=== PATIENT | female | born 1950 | race American Indian/Alaskan Native ===

== ENCOUNTER 2021-07-14 09:55 | Inpatient (IN) | payer MEDICARE ==
[2021-07-14] MEDS ORDERED: IPRATROPIUM 0.02% NEBU 2.5 ML IH ONE ×2 (10:00→13:21)
[2021-07-14] MEDS ORDERED: ALBUTEROL 2.5 MG/3 ML NEBU IH ONE (10:00)
[2021-07-14] MEDS ORDERED: SODIUM CHLORIDE 0.9% 1000 ML 1,000 ML IV ONE (10:00)
--- NOTE | 2021-07-14 10:06 | Emergency Department Report ---
ED Shortness of Breath HPI - General Chief Complaint: Dyspnea/Respdistress Stated Complaint: NICKY Time Seen by Provider: 07/14/21 10:00 - History of Present Illness Initial Comments: Patient resents via ambulance secondary shortness of breath. She has a recent diagnosis of COPD. Patient was having trouble breathing. EMS was called. During transport, they noted the patient to be an extremis. They had placed her on a neb. She had received 7.5 mg of albuterol along with 0.5 mg of Atrovent, 125 mg of Solu-Medrol, as well as 2 g of magnesium. According to EMS, she is really not getting any better. She is still wheezing. She is still labored. She is still tachypneic. She is still somnolent. Patient has never been in tubated before as far as we are aware. EMS provides all of the history. History from the patient is somewhat limited due to her respiratory distress. There is no family present. - Related Data Allergies Allergy/AdvReac Type Severity Reaction Status Date / Time No Known Allergies Allergy Verified 07/14/21 12:02 ED Review of Systems ROS: Stated complaint: NICKY Other details as noted in HPI Comment: Unobtainable due to pts medical conditions (Severe respiratory distress) ED Past Medical Hx - Past Medical History Hx COPD: Yes (Per EMS) - Surgical History Additional Surgical History: Cannot be obtained for the patient secondary to respiratory distress - Family History Family history: other (Cannot be obtained for the patient secondary to respiratory distress) - Social History Substance Use Type: Other (Cannot be obtained for the patient secondary to respiratory distress) ED Physical Exam - General Limitations: Physical Limitation (Respiratory distress), Other (Pulse ox is noted and the patient is hypoxic on a nonrebreather) General appearance: obtunded, in distress, other (She is frail) - Head Head exam: Present: atraumatic, normocephalic - Eye Eye exam: Present: normal appearance, EOMI. Absent: scleral icterus - ENT ENT exam: Present: normal external ear exam - Neck Neck exam: Present: normal inspection, other (Trachea midline) - Respiratory Respiratory exam: Present: respiratory distress (Moderate to severe), wheezes (Bilateral), accessory muscle use, decreased breath sounds, prolonged expiratory - Cardiovascular Cardiovascular Exam: Present: normal rhythm, tachycardia - GI/Abdominal GI/Abdominal exam: Present: soft. Absent: distended - Extremities Exam Extremities exam: Present: normal capillary refill. Absent: pedal edema - Neurological Exam Neurological exam: Present: altered, reflexes normal - Psychiatric Psychiatric exam: Present: other (Decreased responsiveness) - Skin Skin exam: Present: warm, dry ED Course Vital Signs 07/14/21 09:57 Temperature 97.6 F Pulse Rate 111 H Respiratory 24 Rate Blood Pressure 149/87 [Left] O2 Sat by Pulse 100 Oximetry - Reevaluation(s) Reevaluation #1: 07/14/21 10:05 EMS was met upon arrival. Continuous neb with BiPAP ordered. X-ray and labs ordered. Patient will need admitted. Old records noted. Reevaluation #2: 07/14/21 12:26 Patient remained hypoxic and dyspneic despite continuous neb. She does have concerning markers for coronavirus although there is no radiographic evidence of such. She will be admitted for ongoing management. ED Medical Decision Making - Lab Data Result diagrams: 07/14/21 10:22 07/14/21 10:22 Rhythm strip: Sinus tachycardia without ectopy. Monitor observe 10 seconds. - Radiology Data Radiology results: report reviewed - Medical Decision Making Patient presented with respiratory distress. She had hypoxic respiratory failure with COPD exacerbation. She had markers that were concerning for c oronavirus but there is no radiographic evidence of coronavirus or other pneumonia. There is no evidence of infiltrative process. She did not have evidence of congestive heart failure. She will be evaluated further. She does have an elevated D-dimer that could be consistent with coronavirus although from an age-adjusted standpoint, this is unremarkable. Critical Care Time: Yes (45 minutes exclusive of all procedures) Critical care attestation.: If time is entered above; I have spent that time in minutes in the direct care of this critically ill patient, excluding procedure time. ED Disposition Clinical Impression: COPD with exacerbation Acute respiratory failure Qualifiers: Respiratory failure complication: hypoxia Qualified Code(s): J96.01 - Acute respiratory failure with hypoxia Disposition: ADMITTED INPATIENT Is pt being admited?: Yes Condition: Stable Instructions: Chronic Obstructive Pulmonary Disease (ED)
--- NOTE | 2021-07-14 11:04 | Electrocardiograph Report ---
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
[2021-07-14 11:07] LABS: BUN/Creatinine Ratio 31; Blood Urea Nitrogen 25 mg/dL (7-17); Calcium 10.8 mg/dL (8.4-10.2); Hemolysis Index 8
[2021-07-14 11:11] LABS: C-Reactive Protein 1.6 mg/dL (0.00-1.30)
[2021-07-14 11:16] LABS: Basophils % (Auto) 0.1 % (0.0-1.8); Hemoglobin 15.4 gm/dl (10.1-14.3); Lymphocytes # (Auto) 0.9 K/mm3 (1.2-5.4); Lymphocytes % (Auto) 7.6 % (13.4-35.0); Mean Corpuscular HGB Conc 33 % (30-34); Mean Corpuscular Volume 86 fl (79-97); Monocytes # (Auto) 0.6 K/mm3 (0.0-0.8); Monocytes % (Auto) 5.1 % (0.0-7.3); Red Blood Count 5.44 M/mm3 (3.65-5.03); Red Cell Distribution Width 15.2 % (13.2-15.2)
--- NOTE | 2021-07-14 11:38 | XRay Report ---
CHEST 1 VIEW 07/14/2021 10:49 AM INDICATION / CLINICAL INFORMATION: hypoxia. COMPARISON: None available. FINDINGS: SUPPORT DEVICES: None. HEART / MEDIASTINUM: No significant abnormality. LUNGS / PLEURA: The lungs are clear and hyperexpanded. No significant pleural effusion. No pneumothor ax. ADDITIONAL FINDINGS: No significant additional findings. IMPRESSION: 1. No acute abnormality of the chest. Signer Name: Scar Strauss MD Signed: 07/14/2021 11:34 AM Workstation Name: [id number]
[2021-07-14 11:45] LABS: Chol/HDL Ratio 3.38 %; HDL Cholesterol 71 mg/dL (40-59); LDL Cholesterol,Direct 146 mg/dL (50-130)
[2021-07-14] MEDS ORDERED: HYDROmorphone 1 MG/1 ML INJ IV PRN (12:13)
[2021-07-14] MEDS ORDERED: ACETAMINOPHEN 325 MG TAB PO PRN (12:13)
[2021-07-14] MEDS ORDERED: oxyCODONE /ACETAMINOPHEN 5-325MG TAB PO PRN (12:13)
[2021-07-14] MEDS ORDERED: ONDANSETRON 4 MG/2 ML INJ IV PRN (12:13)
[2021-07-14] MEDS ORDERED: ALBUTEROL 2.5 MG/3 ML NEBU IH PRN (12:13)
--- NOTE | 2021-07-14 12:13 | History and Physical Report ---
History of Present Illness Chief complaint: She says she could not breathe History of present illness: 71 YO Female with COPD presents ED for evaluation. Patient is confused with dementia And is unable to provide history at the time my evaluation. Patient history taken from EMS staff, ED staff. The patient notified EMS due to difficulty breathing. EMS notified and upon arrival the patient was found to be in distress with a pulse oximetry of 86% on room air. The patient was placed on supplemental oxygen and transported to [facility] for further care and evaluation of the aforementioned symptoms. The patient was seen and evaluated in the emergency department. All lab and imaging studies reviewed. The patient was to have a pulse oximetry of 86% on room air which is consistent with acute hypoxemic respiratory failure. The patient was placed on supplemental oxygen without significant improvement in symptoms. The patient was placed on noninvasive positive pressure ventilation with mild improvement in symptoms. Patient is using accessory muscles to breathe, is unable to speak in complete sentences, tripoding at the time of my evaluation. Chest x-ray showed evidence of pneumonia. Patient admitted to [facility] and initiated on pneumonia protocol as well as coronavirus protocol. Pulmonary team consulted in ED. Infectious disease team consulted in ED. No further history is obtainable. No prior admission for review. No medication listed at time of admission for reconciliation. Advanced care planning conducted in ED. Past History Past Medical History: COPD, other (See HPI) Past Surgical History: No surgical history, Other (Reviewed) Social history: single. denies: smoking, alcohol abuse, prescription drug abuse Family history: hypertension Medications and Allergies Allergies Allergy/AdvReac Type Severity Reaction Status Date / Time No Known Allergies Allergy Verified 07/14/21 12:02 Active Meds: Active Medications Albuterol (Albuterol 2.5 Mg/3 Ml Nebu) 10 mg IH ONCE ONE Stop: 07/14/21 10:01 Sodium Chloride (Nacl 0.9% 1000 Ml) 1,000 mls @ 999 mls/hr IV BOLUS ONE Stop: 07/14/21 11:00 Ipratropium Fay (Ipratropium 0.02% Nebu 2.5 Ml) 1 mg IH ONCE ONE Stop: 07/14/21 10:01 Review of Systems ROS unobtainable: due to mental status Exam - Constitutional Vitals: Temp Pulse Resp BP Pulse Ox 97.6 F 111 H 24 149/87 100 07/14/21 09:57 07/14/21 09:57 07/14/21 09:57 07/14/21 09:57 07/14/21 09:57 General appearance: Present: mild distress, cachectic - EENT Eyes: Present: PERRL ENT: hearing intact, clear oral mucosa - Neck Neck: Present: supple, normal ROM - Respiratory Respiratory effort: labored Respiratory: bilateral: diminished, rhonchi - Cardiovascular Heart Sounds: Present: S1 & S2. Absent: rub, click - Extremities Extremities: pulses symmetrical, No edema Peripheral Pulses: within normal limits - Abdominal General gastrointestinal: Present: soft, non-tender, non-distended, normal bowel sounds Female genitourinary: Present: normal - Integumentary Integumentary: Present: clear, warm, dry - Musculoskeletal Musculoskeletal: gait normal, strength equal bilaterally - Psychiatric Psychiatric: no appropriate mood/affect, no intact judgment & insight, no memory intact - Neurologic Neurologic: CNII-XII intact, no focal deficits, moves all extremities, no gait normal HEART Score - HEART Score Troponin: Troponin T 0.032 ng/mL (0.00-0.029) H 07/14/21 10:22 Results - Labs CBC & Chem 7: 07/14/21 10:22 07/14/21 10:22 Labs: Abnormal lab results 07/14/21 07/14/21 07/14/21 Range/Units 10:22 10:22 10:22 WBC 11.4 H (4.5-11.0) K/mm3 RBC 5.44 H (3.65-5.03) M/mm3 Hgb 15.4 H (10.1-14.3) gm/dl Hct 47.0 H (30.3-42.9) % Lymph % (Auto) 7.6 L (13.4-35.0) % Lymph # (Auto) 0.9 L (1.2-5.4) K/mm3 Seg Neutrophils % 87.2 H (40.0-70.0) % Seg Neutrophils # 9.9 H (1.8-7.7) K/mm3 D-Dimer 642.08 H (0-234) ng/mlDDU Chloride 97.2 L (98-107) mmol/L BUN 25 H (7-17) mg/dL Glucose 143 H (65-100) mg/dL Calcium 10.8 H (8.4-10.2) mg/dL Ferritin (10.0-200.0) ng/mL Lactate Dehydrogenase (91-180) units/L Troponin T 0.032 H (0.00-0.029) ng/mL C-Reactive Protein (0.00-1.30) mg/dL Triglycerides 162 H (2-149) mg/dL Cholesterol 240 H (50-199) mg/dL LDL Cholesterol Direct 146 H (50-130) mg/dL HDL Cholesterol 71 H (40-59) mg/dL 07/14/21 07/14/21 Range/Units 10:22 10:22 WBC (4.5-11.0) K/mm3 RBC (3.65-5.03) M/mm3 Hgb (10.1-14.3) gm/dl Hct (30.3-42.9) % Lymph % (Auto) (13.4-35.0) % Lymph # (Auto) (1.2-5.4) K/mm3 Seg Neutrophils % (40.0-70.0) % Seg Neutrophils # (1.8-7.7) K/mm3 D-Dimer (0-234) ng/mlDDU Chloride (98-107) mmol/L BUN (7-17) mg/dL Glucose 144 H (65-100) mg/dL Calcium (8.4-10.2) mg/dL Ferritin 263.2 H (10.0-200.0) ng/mL Lactate Dehydrogenase 314 H (91-180) units/L Troponin T (0.00-0.029) ng/mL C-Reactive Protein 1.60 H (0.00-1.30) mg/dL Triglycerides (2-149) mg/dL Cholesterol (50-199) mg/dL LDL Cholesterol Direct (50-130) mg/dL HDL Cholesterol (40-59) mg/dL Assessment and Plan - Patient Problems (1) Acute hypoxemic respiratory failure Current Visit: Yes Status: Acute Plan to address problem: Chest x-ray, supplemental oxygen, pulse oximetry. Noninvasive positive pressure ventilation. Pulmonary team consulted, (2) Malnutrition Current Visit: Yes Status: Acute Qualifiers: Malnutrition type: protein-calorie malnutrition Protein-calorie malnutrition severity: moderate Qualified Code(s): E44.0 - Moderate protein- calorie malnutrition Plan to address problem: Increase protein intake when awake and alert only, dietary supplementation (3) Suspected 2019 novel coronavirus infection Current Visit: Yes Status: Acute Plan to address problem: Coronavirus protocol: IV antibiotic therapy, IV steroid therapy, supplemental oxygen, pulse oximetry, vitamin D therapy, vitamin C therapy, zinc therapy, prophylactic anticoagulation. (4) Pneumonia Current Visit: Yes Status: Acute Plan to address problem: Pneumonia protocol: Chest x-ray, CBC, supplemental oxygen, pulse oximetry, nebulizer therapy, blood culture. (5) COVID-19 vaccination not done Current Visit: Yes Status: Acute Plan to address problem: Patient counseled, (6) DVT prophylaxis Current Visit: Yes Status: Acute Plan to address problem: SCD to bilateral lower extremities while in bed, prophylactic anticoagulation (7) Advance care planning Current Visit: Yes Status: Acute Plan to address problem: Disease education done, care plan discussed, diagnosis discussed, prognosis discussed, patient is full code, +30 minutes.
[2021-07-14] MEDS ORDERED: AZITHROMYCIN/NS 500 MG/250 ML 500 MG/250 ML BAG IV SCH (13:00)
[2021-07-14] MEDS: methylPREDNISolone Sod Succinate 40 MG/1 ML INJ IV SCH ×2 (14:15→22:34)
[2021-07-14] MEDS: cefTRIAXone/NS 2 GM/100 ML 2 GM/100 ML BAG IV SCH (14:45)
[2021-07-14] MEDS ORDERED: SODIUM CHLORIDE 0.9% 1000 ML 1,000 ML ONE (15:03)
[2021-07-14 17:28] LABS: Platelet Count 142 K/mm3 (140-440)
[2021-07-14] MEDS: ZINC SULFATE 220 MG CAP PO SCH (22:33)
[2021-07-14] MEDS: ASCORBIC ACID 500 MG TAB PO SCH (22:33)
[2021-07-14] MEDS: HEPARIN 5,000 UNIT/1 ML VIAL SUB-Q SCH (22:34)
[2021-07-15 04:24] LABS: Basophils % (Auto) 0.1 % (0.0-1.8); Hematocrit 40.4 % (30.3-42.9); Hemoglobin 13.2 gm/dl (10.1-14.3); Lymphocytes # (Auto) 0.9 K/mm3 (1.2-5.4); Lymphocytes % (Auto) 9.9 % (13.4-35.0); Mean Corpuscular HGB Conc 33 % (30-34); Mean Corpuscular Volume 87 fl (79-97); Monocytes # (Auto) 0.8 K/mm3 (0.0-0.8); Monocytes % (Auto) 9.3 % (0.0-7.3); Red Blood Count 4.62 M/mm3 (3.65-5.03)
[2021-07-15 04:31] LABS: Platelet Count 128 K/mm3 (140-440)
[2021-07-15] MEDS ORDERED: ACETAMINOPHEN 325 MG TAB PO PRN (07:41)
[2021-07-15] MEDS: CHOLECALCIFEROL (VIT D3) 400 UNIT TAB PO SCH (10:24)
[2021-07-15] MEDS: ASCORBIC ACID 500 MG TAB PO SCH ×2 (10:24→22:40)
[2021-07-15] MEDS: AZITHROMYCIN 250 MG TAB PO SCH (10:24)
[2021-07-15] MEDS: ZINC SULFATE 220 MG CAP PO SCH ×2 (10:25→22:40)
[2021-07-15] MEDS: HEPARIN 5,000 UNIT/1 ML VIAL SUB-Q SCH ×2 (10:25→22:40)
[2021-07-15] MEDS: methylPREDNISolone Sod Succinate 40 MG/1 ML INJ IV SCH ×3 (10:25→22:41)
--- NOTE | 2021-07-15 11:11 | Electrocardiograph Report ---
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 Electronically Signed On 07-15-2021 11:11:21 EST by Guanakito Haynes
[2021-07-15] MEDS: cefTRIAXone/NS 2 GM/100 ML 2 GM/100 ML BAG IV SCH (14:31)
--- NOTE | 2021-07-15 16:56 | Progress Note ---
Assessment and Plan Assessment and plan: -- Positive COVID-19 infection [07/14/2019] Current Visit: Yes Status: Acute Isolation contact and droplet isolation Oxygen evaluation, currently not on supplemental oxygen push respiratory therapist Prone positioning, inflammatory markers ID consult, home O2 evaluation at discharge pulse oximetry, vitamin D therapy, vitamin C therapy, zinc therapy, ID consult --Malnutrition Current Visit: Yes Status: Acute Dietary supplements and supportive care -- Pneumonia Current Visit: Yes Status: Acute Leukocytosis, procalcitonin is high Continue empiric antibiotics, follow cultures Oxygen as needed --Elevated D-dimers; Current Visit: Yes Status: Acute Check CTA to rule out PE Lower extremity venous Doppler to rule out DVT -- COVID-19 vaccination not done Current Visit: Yes Status: Acute Patient counseled, -- DVT prophylaxis Current Visit: Yes Status: Acute SCD to bilateral lower extremities while in bed, prophylactic anticoagulation --Advance care planning Current Visit: Yes Status: Acute Disease education done, care plan discussed, diagnosis discussed, prognosis discussed, patient is full code, +30 minutes. We will closely monitor the patient and adjust management as needed plan of care reviewed with the patient and her nurse History Interval history: Seen and examined the patient at the bedside Patient's chart and medications reviewed, isolation precautions and PPE protocols observed Patient seen in isolation, COVID-19 positive Complains of mild shortness of breath Hospitalist Physical - Constitutional Vitals: Temp Pulse Resp BP Pulse Ox 98.0 F 85 20 118/74 96 07/15/21 12:29 07/15/21 12:29 07/15/21 12:32 07/15/21 12:29 07/15/21 13:15 General appearance: Present: mild distress, cachectic - EENT Eyes: Present: PERRL, EOM intact - Neck Neck: Present: supple, normal ROM - Respiratory Respiratory effort: normal Respiratory: left: rhonchi, wheezing, other, bilateral: diminished, negative: rales - Cardiovascular Rhythm: regularly irregular Heart Sounds: Present: S1 & S2, gallop, rub, click - Extremities Extremities: no ischemia, No edema - Abdominal General gastrointestinal: soft, non-tender, non-distended, normal bowel sounds - Integumentary Integumentary: Present: clear, warm - Psychiatric Psychiatric: appropriate mood/affect, cooperative - Neurologic Neurologic: moves all extremities HEART Score - HEART Score Troponin: Troponin T 0.032 ng/mL (0.00-0.029) H 07/14/21 10:22 Results - Labs CBC & Chem 7: 07/15/21 03:55 07/14/21 10:22 Labs: Laboratory Last Values WBC 8.8 K/mm3 (4.5-11.0) 07/15/21 03:55 RBC 4.62 M/mm3 (3.65-5.03) 07/15/21 03:55 Hgb 13.2 gm/dl (10.1-14.3) 07/15/21 03:55 Hct 40.4 % (30.3-42.9) D 07/15/21 03:55 MCV 87 fl (79-97) 07/15/21 03:55 MCH 29 pg (28-32) 07/15/21 03:55 MCHC 33 % (30-34) 07/15/21 03:55 RDW 15.0 % (13.2-15.2) 07/15/21 03:55 Plt Count 128 K/mm3 (140-440) L 07/15/21 03:55 Lymph % (Auto) 9.9 % (13.4-35.0) L 07/15/21 03:55 [place] % (Auto) 9.3 % (0.0-7.3) H 07/15/21 03:55 Eos % (Auto) 0.0 % (0.0-4.3) 07/15/21 03:55 Baso % (Auto) 0.1 % (0.0-1.8) 07/15/21 03:55 Lymph # (Auto) 0.9 K/mm3 (1.2-5.4) L 07/15/21 03:55 [place] # (Auto) 0.8 K/mm3 (0.0-0.8) 07/15/21 03:55 Eos # (Auto) 0.0 K/mm3 (0.0-0.4) 07/15/21 03:55 Baso # (Auto) 0.0 K/mm3 (0.0-0.1) 07/15/21 03:55 Seg Neutrophils % 80.7 % (40.0-70.0) H 07/15/21 03:55 Seg Neutrophils # 7.1 K/mm3 (1.8-7.7) 07/15/21 03:55 D-Dimer 642.08 ng/mlDDU (0-234) H 07/14/21 10:22 Sodium 137 mmol/L (137-145) 07/14/21 10:22 Potassium 3.9 mmol/L (3.6-5.0) 07/14/21 10:22 Chloride 97.2 mmol/L (98-107) L 07/14/21 10:22 Carbon Dioxide 22 mmol/L (22-30) 07/14/21 10:22 Anion Gap 22 mmol/L 07/14/21 10:22 BUN 25 mg/dL (7-17) H 07/14/21 10:22 Creatinine 0.8 mg/dL (0.6-1.2) 07/14/21 10:22 Estimated GFR > 60 ml/min 07/14/21 10:22 BUN/Creatinine Ratio 31 % 07/14/21 10:22 Glucose 143 mg/dL (65-100) H 07/14/21 10:22 Glucose 144 mg/dL (65-100) H 07/14/21 10:22 Calcium 10.8 mg/dL (8.4-10.2) H 07/14/21 10:22 Ferritin 263.2 ng/mL (10.0-200.0) H 07/14/21 10:22 Lactate Dehydrogenase 314 units/L (91-180) H 07/14/21 10:22 Troponin T 0.032 ng/mL (0.00-0.029) H 07/14/21 10:22 C-Reactive Protein 1.60 mg/dL (0.00-1.30) H 07/14/21 10:22 Triglycerides 162 mg/dL (2-149) H 07/14/21 10:22 Cholesterol 240 mg/dL (50-199) H 07/14/21 10:22 LDL Cholesterol Direct 146 mg/dL (50-130) H 07/14/21 10:22 HDL Cholesterol 71 mg/dL (40-59) H 07/14/21 10:22 Cholesterol/HDL Ratio 3.38 % 07/14/21 10:22 Procalcitonin 1.35 ng/mL (<0.15) 07/14/21 10:22 Coronavirus (PCR) Positive (Negative) A 07/14/21 10:58 Active Medications - Current Medications Current Medications: Generic Name Dose Route Start Last Admin Trade Name Freq PRN Reason Stop Dose Admin Acetaminophen 650 mg 07/15/21 07:41 Acetaminophen 325 Mg Tab PO Q4H PRN Pain MILD(1-3)/Fever >100.5/CANNON Albuterol 2.5 mg 07/14/21 12:13 Albuterol 2.5 Mg/3 Ml Nebu IH Q4HRT PRN Shortness Of Breath Ascorbic Acid 500 mg 07/14/21 22:00 07/15/21 10:24 Ascorbic Acid 500 Mg Tab PO 500 mg BID CECI Administration Azithromycin 500 mg 07/15/21 10:00 07/15/21 10:24 Azithromycin 250 Mg Tab PO 07/18/21 10:01 500 mg DAILY CECI Administration Cholecalciferol 1,000 unit 07/15/21 10:00 07/15/21 10:24 Cholecalciferol (Vit D3) 400 Unit Tab PO 1,000 unit QDAY CECI Administration Heparin Sodium (Porcine) 5,000 unit 07/14/21 22:00 07/15/21 10:25 Heparin 5,000 Unit/1 Ml Vial SUB-Q 5,000 unit Q12HR CECI Administration Hydromorphone HCl 0.5 mg 07/14/21 12:13 07/14/21 14:45 Hydromorphone 1 Mg/1 Ml Inj IV 0.5 mg Q23H PRN Administration Pain , Severe (7-10) Ceftriaxone Sodium 2 gm in 100 mls @ 200 mls/hr 07/14/21 13:00 07/15/21 14:31 Rocephin/Ns 2 Gm/100 Ml IV 07/18/21 13:29 200 mls/hr Q24H CECI Administration Protocol Methylprednisolone Sodium Succinate 40 mg 07/14/21 14:00 07/15/21 14:31 Methylprednisolone Sod Succinate 40 Mg/1 Ml Inj IV 40 mg Q8HR CECI Administration Ondansetron HCl 4 mg 07/14/21 12:13 Ondansetron 4 Mg/2 Ml Inj IV Q8H PRN Nausea And Vomiting Oxycodone/Acetaminophen 1 tab 07/14/21 12:13 Oxycodone /Acetaminophen 5-325mg Tab PO Q16H PRN Pain, Moderate (4-6) Sodium Chloride 10 ml 07/14/21 22:00 07/15/21 10:25 Sodium Chloride 0.9% 10 Ml Flush Syringe IV 10 ml BID CECI Administration Sodium Chloride 10 ml 07/14/21 12:13 Sodium Chloride 0.9% 10 Ml Flush Syringe IV PRN PRN LINE FLUSH Zinc Sulfate 220 mg 07/14/21 22:00 07/15/21 10:25 Zinc Sulfate 220 Mg Cap PO 220 mg BID CECI Administration
[2021-07-16] MEDS: methylPREDNISolone Sod Succinate 40 MG/1 ML INJ IV SCH ×3 (07:30→23:16)
[2021-07-16 09:10] LABS: Alanine Aminotransferase 11 units/L (7-56); Albumin 3.9 g/dL (3.9-5); Blood Urea Nitrogen 24 mg/dL (7-17); Calcium 10.6 mg/dL (8.4-10.2); Hemolysis Index 3
[2021-07-16 09:19] LABS: BUN/Creatinine Ratio 34
--- NOTE | 2021-07-16 09:19 | Progress Note ---
Assessment and Plan Assessment and plan: --Acute hypoxia; 3 L NC oxygen Current Visit: Yes Status: Acute patient is on 3 L of supplemental oxygen this morning Patient was on room air yesterday Continue O2 titrate O2 sats to more than 90%, Will add remdesivir, patient is already on steroid Home O2 evaluation prior to discharge Prone positioning -- Positive COVID-19 infection [07/14/2019] Current Visit: Yes Status: Acute Isolation contact and droplet isolation Oxygen evaluation, today patient is on 3 L NC O2 We will add remdesivir to the regimen Prone positioning, inflammatory markers ID consult, home O2 evaluation at discharge pulse oximetry, vitamin D therapy, vitamin C therapy, zinc therapy, --Malnutrition/BMI 18 Current Visit: Yes Status: Acute Dietary supplements and supportive care Albumin within normal range -- Pneumonia Current Visit: Yes Status: Acute Leukocytosis, procalcitonin is high Continue empiric antibiotics, follow cultures Oxygen 3 L NC today --Elevated D-dimers; hypoxia Current Visit: Yes Status: Acute Check CTA to rule out PE Lower extremity venous Doppler to rule out DVT -- COVID-19 vaccination not done Current Visit: Yes Status: Acute Patient counseled, -- DVT prophylaxis Current Visit: Yes Status: Acute SCD to bilateral lower extremities while in bed, prophylactic anticoagulation --Advance care planning Current Visit: Yes Status: Acute Disease education done, care plan discussed, diagnosis discussed, prognosis discussed, patient is full code, +30 minutes. We will closely monitor the patient and adjust management as needed plan of care reviewed with the patient and her nurse History Interval history: I have seen and examined the patient at the bedside this morning Isolation precautions and PPE protocols strictly followed per COVID-19 CDC guidelines Patient complains of generalized weakness Patient is hypoxic requiring 3 L of nasal cannula oxygen Hospitalist Physical - Constitutional Vitals: Temp Pulse Resp BP Pulse Ox 97.9 F 78 20 120/71 98 07/16/21 05:18 07/16/21 05:18 07/16/21 05:18 07/16/21 05:18 07/16/21 05:18 General appearance: Present: mild distress, cachectic, other (On 3 L nasal cannula oxygen) - EENT Eyes: Present: PERRL, EOM intact - Neck Neck: Present: supple, normal ROM - Respiratory Respiratory effort: normal Respiratory: bilateral: diminished, rhonchi, negative: rales, wheezing - Cardiovascular Rhythm: regular Heart Sounds: Present: S1 & S2 - Extremities Extremities: no ischemia, No edema - Abdominal General gastrointestinal: soft, non-tender, non-distended, normal bowel sounds - Integumentary Integumentary: Present: clear, warm - Psychiatric Psychiatric: appropriate mood/affect, cooperative - Neurologic Neurologic: CNII-XII intact, moves all extremities HEART Score - HEART Score Troponin: Troponin T 0.032 ng/mL (0.00-0.029) H 07/14/21 10:22 Results - Labs CBC & Chem 7: 07/15/21 03:55 07/16/21 14:51 Labs: Laboratory Last Values WBC 8.8 K/mm3 (4.5-11.0) 07/15/21 03:55 RBC 4.62 M/mm3 (3.65-5.03) 07/15/21 03:55 Hgb 13.2 gm/dl (10.1-14.3) 07/15/21 03:55 Hct 40.4 % (30.3-42.9) D 07/15/21 03:55 MCV 87 fl (79-97) 07/15/21 03:55 MCH 29 pg (28-32) 07/15/21 03:55 MCHC 33 % (30-34) 07/15/21 03:55 RDW 15.0 % (13.2-15.2) 07/15/21 03:55 Plt Count 128 K/mm3 (140-440) L 07/15/21 03:55 Lymph % (Auto) 9.9 % (13.4-35.0) L 07/15/21 03:55 Brooks % (Auto) 9.3 % (0.0-7.3) H 07/15/21 03:55 Eos % (Auto) 0.0 % (0.0-4.3) 07/15/21 03:55 Baso % (Auto) 0.1 % (0.0-1.8) 07/15/21 03:55 Lymph # (Auto) 0.9 K/mm3 (1.2-5.4) L 07/15/21 03:55 Brooks # (Auto) 0.8 K/mm3 (0.0-0.8) 07/15/21 03:55 Eos # (Auto) 0.0 K/mm3 (0.0-0.4) 07/15/21 03:55 Baso # (Auto) 0.0 K/mm3 (0.0-0.1) 07/15/21 03:55 Seg Neutrophils % 80.7 % (40.0-70.0) H 07/15/21 03:55 Seg Neutrophils # 7.1 K/mm3 (1.8-7.7) 07/15/21 03:55 D-Dimer 642.08 ng/mlDDU (0-234) H 07/14/21 10:22 Sodium 142 mmol/L (137-145) 07/16/21 08:17 Potassium 4.4 mmol/L (3.6-5.0) 07/16/21 08:17 Chloride 106.7 mmol/L (98-107) 07/16/21 08:17 Carbon Dioxide 23 mmol/L (22-30) 07/16/21 08:17 Anion Gap 17 mmol/L 07/16/21 08:17 BUN 24 mg/dL (7-17) H 07/16/21 08:17 Creatinine 0.8 mg/dL (0.6-1.2) 07/14/21 10:22 Estimated GFR > 60 ml/min 07/14/21 10:22 BUN/Creatinine Ratio 31 % 07/14/21 10:22 Glucose 114 mg/dL (65-100) H 07/16/21 08:17 POC Glucose 107 mg/dL (70-105) H 07/16/21 07:28 Calcium 10.6 mg/dL (8.4-10.2) H 07/16/21 08:17 Ferritin 263.2 ng/mL (10.0-200.0) H 07/14/21 10:22 Total Bilirubin < 0.20 mg/dL (0.1-1.2) 07/16/21 08:17 AST 21 units/L (5-40) 07/16/21 08:17 ALT 11 units/L (7-56) 07/16/21 08:17 Alkaline Phosphatase 69 units/L (35-129) 07/16/21 08:17 Lactate Dehydrogenase 314 units/L (91-180) H 07/14/21 10:22 Troponin T 0.032 ng/mL (0.00-0.029) H 07/14/21 10:22 C-Reactive Protein 1.60 mg/dL (0.00-1.30) H 07/14/21 10:22 Total Protein 7.1 g/dL (6.3-8.2) 07/16/21 08:17 Albumin 3.9 g/dL (3.9-5) 07/16/21 08:17 Albumin/Globulin Ratio 1.2 % 07/16/21 08:17 Triglycerides 162 mg/dL (2-149) H 07/14/21 10:22 Cholesterol 240 mg/dL (50-199) H 07/14/21 10:22 LDL Cholesterol Direct 146 mg/dL (50-130) H 07/14/21 10:22 HDL Cholesterol 71 mg/dL (40-59) H 07/14/21 10: Cholesterol/HDL Ratio 3.38 % 07/14/21 10:22 Procalcitonin 1.35 ng/mL (<0.15) 07/14/21 10:22 Coronavirus (PCR) Positive (Negative) A 07/14/21 10:58 Schwarz/IV: Voiding Method Bedpan Active Medications - Current Medications Current Medications: Generic Name Dose Route Start Last Admin Trade Name Freq PRN Reason Stop Dose Admin Acetaminophen 650 mg 07/15/21 07:41 Acetaminophen 325 Mg Tab PO Q4H PRN Pain MILD(1-3)/Fever >100.5/CANNON Albuterol 2.5 mg 07/14/21 12:13 Albuterol 2.5 Mg/3 Ml Nebu IH Q4HRT PRN Shortness Of Breath Ascorbic Acid 500 mg 07/14/21 22:00 07/15/21 22:40 Ascorbic Acid 500 Mg Tab PO 500 mg BID CECI Administration Azithromycin 500 mg 07/15/21 10:00 07/15/21 10:24 Azithromycin 250 Mg Tab PO 07/18/21 10:01 500 mg DAILY CECI Administration Cholecalciferol 1,000 unit 07/15/21 10:00 07/15/21 10:24 Cholecalciferol (Vit D3) 400 Unit Tab PO 1,000 unit QDAY CECI Administration Heparin Sodium (Porcine) 5,000 unit 07/14/21 22:00 07/15/21 22:40 Heparin 5,000 Unit/1 Ml Vial SUB-Q 5,000 unit Q12HR CECI Administration Hydromorphone HCl 0.5 mg 07/14/21 12:13 07/14/21 14:45 Hydromorphone 1 Mg/1 Ml Inj IV 0.5 mg Q23H PRN Administration Pain , Severe (7-10) Ceftriaxone Sodium 2 gm in 100 mls @ 200 mls/hr 07/14/21 13:00 07/15/21 14:31 Rocephin/Ns 2 Gm/100 Ml IV 07/18/21 13:29 200 mls/hr Q24H CECI Administration Protocol Methylprednisolone Sodium Succinate 40 mg 07/14/21 14:00 07/16/21 07:30 Methylprednisolone Sod Succinate 40 Mg/1 Ml Inj IV 40 mg Q8HR CECI Administration Ondansetron HCl 4 mg 07/14/21 12:13 Ondansetron 4 Mg/2 Ml Inj IV Q8H PRN Nausea And Vomiting Oxycodone/Acetaminophen 1 tab 07/14/21 12:13 Oxycodone /Acetaminophen 5-325mg Tab PO Q16H PRN Pain, Moderate (4-6) Sodium Chloride 10 ml 07/14/21 22:00 07/15/21 22:41 Sodium Chloride 0.9% 10 Ml Flush Syringe IV 10 ml BID CECI Administration Sodium Chloride 10 ml 07/14/21 12:13 Sodium Chloride 0.9% 10 Ml Flush Syringe IV PRN PRN LINE FLUSH Zinc Sulfate 220 mg 07/14/21 22:00 07/15/21 22:40 Zinc Sulfate 220 Mg Cap PO 220 mg BID CECI Administration Nutrition/Malnutrition Assess - Dietary Evaluation Nutrition/Malnutrition Findings: Nutrition Notes Start: 07/15/21 17:53 Freq: Status: Active Protocol: Document 07/15/21 17:53 PATRICIA (Rec: 07/15/21 18:10 PATRICIA [email or web address]) Nutrition Notes Need for Assessment generated from: Low BMI Initial or Follow up Assessment Current Diagnosis Respiratory Failure, Malnutrition Other Pertinent Diagnosis COVID-19, Pneumonia, Acute moderate protein/calorie malnutritioon. Current Diet Regular Diet (since D 07/14). Labs/Tests 07/15: Cl 97.2, BUN 25, Glu 143, Ca 10.8. Pertinent Medications 07/15: Vit C, Vit D3, ZnSO4, others nutritionally unremarkable. Height 5 ft 5 in Weight 49.895 kg Weed Body Weight (kg) 56.81 BMI 18.3 Intake Prior to Admission Good Weight change and time frame Pt states maame having loss body weight [employer]. Weight Status Underweight Subjective/Other Information RD consult for Low BMI assessment. Pt's Low BMI seems to correspond to a natural body composition, and not related to a sudden loss of body weight nor chronic malnutrition, since none were mentioned in the Physical Assessment History or the Progress notes. No report available on Pt's PO intake of meals at the time. F/U on dietary intake assessment. Percent of energy/protein needs met: Prescribed Regular Diet provides for energy/protein needs (2,289 Kcal/89 g) during LOS. Burn Absent Trauma Absent GI Symptoms None Food Allergy No Skin Integrity/Comment Clear, warm, dry. Minimum of two criteria No Is patient on ventilator? No Is Patient Ambulatory and/or Out of Bed Yes REE-([facility]-ambulatory/OOB) [ 1332.279 [id number]] Kcal/Kg value to use for calculation 31 Approximate Energy Requirements Using 1547 kcal/Kg Calculation Used for Recommendations Kcal/kg Additional Notes Protein: 1-1.2 g/Kg; 50-60 g/ day. Fluids: 1 ml/Kcal, or as per MD. Nutrition Intervention Follow-Up By: 07/22/21 Additional Comments Continue monitoring food tolerance, %PO intake of meals , and BM.
[2021-07-16] MEDS: HEPARIN 5,000 UNIT/1 ML VIAL SUB-Q SCH ×2 (10:55→23:15)
[2021-07-16] MEDS: ASCORBIC ACID 500 MG TAB PO SCH ×2 (10:55→23:15)
[2021-07-16] MEDS: ZINC SULFATE 220 MG CAP PO SCH ×2 (10:55→23:17)
[2021-07-16] MEDS: AZITHROMYCIN 250 MG TAB PO SCH (10:55)
[2021-07-16] MEDS: CHOLECALCIFEROL (VIT D3) 400 UNIT TAB PO SCH (11:03)
--- NOTE | 2021-07-16 13:18 | Cat Scan Report ---
CT angio chest INDICATION / CLINICAL INFORMATION: Hypoxia/COVID/elevated D-dimers/rule out PE. TECHNIQUE: Axial CT images were obtained through the chest after injection of 70 cc of Omnipaque 350 IV contrast. 3 plane MIP and/or 3D reconstructions were produced. All CT scans at this location are p erformed using CT dose reduction for ALARA by means of automated exposure control. COMPARISON: Same day chest radiograph FINDINGS: PULMONARY ARTERIES: No central or segmental pulmonary embolus. THORACIC AORTA: Calcified atherosclerotic plaque is noted throughout the nonaneurysmal thoracic aorta and major braches, to include the coronary arteries. HEART: No significant abnormality. LYMPHADENOPATHY: Mildly enlarged mediastinal lymph nodes are likely reactive. LUNGS/PLEURA: The lungs are hyperexpanded with emphysema. Prominent areas of bronchial wall thickenin g within the lung bases with scattered areas of mucous plugging. There is no airspace consolidation. No pleural effusion or pneumothorax. OTHER FINDINGS: None. UPPER ABDOMEN: No acute findings. 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 No acute osseous findings. IMPRESSION: 1. No evidence for pulmonary embolism. 2. Prominent areas of bronchial wall thickening in the lung bases with scattered areas of mucous plug ging. Findings most likely reflect lower lower airways disease/bronchiolitis. No evidence of bronchop neumonia. Signer Name: Elliott Winslow MD Signed: 07/16/2021 1:13 PM Workstation Name: [id number]
[2021-07-16] MEDS ORDERED: REMDESIVIR 200 MG in SODIUM CHLORIDE 0.9% 250ML 250 ML IV ONE (13:48)
--- NOTE | 2021-07-16 13:50 | Consultation ---
History of Present Illness - Reason for Consult Consult date: 07/16/21 COVID-19 Requesting physician: NASIMA FRAIRE - History of Present Illness The patient is a 71-year-old female with COPD, dementia was admitted to the hospital with worsening shortness of breath. Upon evaluation in the ER, noted to be hypoxic on room air. Afebrile. WBC was 11.4 on admission, improved to 8.8 today, D-dimer 642, ferritin 263, CRP 1.6, procalcitonin 1.35. Patient test ed positive for COVID-19. Infectious diseases was consulted for additional evaluation. Chest x-ray showed no pneumonia. CTA negative for PE, showed some mucous plugging and possible bronchiolitis. Review of Systems: reviewed in the chart, unable to obtain, minimize risk of transmission Past History Past Medical History: COPD, other (See HPI) Past Surgical History: No surgical history, Other (Reviewed) Social history: single. denies: smoking, alcohol abuse, prescription drug abuse Family history: hypertension Medications and Allergies Allergies Allergy/AdvReac Type Severity Reaction Status Date / Time No Known Allergies Allergy Verified 07/14/21 12:02 Active Meds: Active Medications Acetaminophen (Acetaminophen 325 Mg Tab) 650 mg PO Q4H PRN PRN Reason: Pain MILD(1-3)/Fever >100.5/CANNON Albuterol (Albuterol 2.5 Mg/3 Ml Nebu) 2.5 mg IH Q4HRT PRN PRN Reason: Shortness Of Breath Ascorbic Acid (Ascorbic Acid 500 Mg Tab) 500 mg PO BID [facility] Last Admin: 07/16/21 10:55 Dose: 500 mg Azithromycin (Azithromycin 250 Mg Tab) 500 mg PO DAILY [facility] Stop: 07/18/21 10:01 Last Admin: 07/16/21 10:55 Dose: 500 mg Cholecalciferol (Cholecalciferol (Vit D3) 400 Unit Tab) 1,000 unit PO QDAY [facility] Last Admin: 07/16/21 11:03 Dose: 1,000 unit Heparin Sodium (Porcine) (Heparin 5,000 Unit/1 Ml Vial) 5,000 unit SUB-Q Q12HR [facility] Last Admin: 07/16/21 10:55 Dose: 5,000 unit Hydromorphone HCl (Hydromorphone 1 Mg/1 Ml Inj) 0.5 mg IV Q23H PRN PRN Reason: Pain , Severe (7-10) Last Admin: 07/14/21 14:45 Dose: 0.5 mg Ceftriaxone Sodium (Rocephin/Ns 2 Gm/100 Ml) 2 gm in 100 mls @ 200 mls/hr IV Q24H [facility]; Protocol Stop: 07/18/21 13:29 Last Admin: 07/15/21 14:31 Dose: 200 mls/hr REMDESIVIR 200 mg/ Sodium (Chloride) 250 mls @ 500 mls/hr IV ONCE ONE Stop: 07/16/21 14:17 REMDESIVIR 100 mg/ Sodium (Chloride) 250 mls @ 500 mls/hr IV Q24HR@2100 [facility] Stop: 07/20/21 21:29 Methylprednisolone Sodium Succinate (Methylprednisolone Sod Succinate 40 Mg/1 Ml Inj) 40 mg IV Q8HR [facility] Last Admin: 07/16/21 07:30 Dose: 40 mg Ondansetron HCl (Ondansetron 4 Mg/2 Ml Inj) 4 mg IV Q8H PRN PRN Reason: Nausea And Vomiting Oxycodone/Acetaminophen (Oxycodone /Acetaminophen 5-325mg Tab) 1 tab PO Q16H PRN PRN Reason: Pain, Moderate (4-6) Sodium Chloride (Sodium Chloride 0.9% 10 Ml Flush Syringe) 10 ml IV BID [facility] Last Admin: 07/16/21 10:56 Dose: 10 ml Sodium Chloride (Sodium Chloride 0.9% 10 Ml Flush Syringe) 10 ml IV PRN PRN PRN Reason: LINE FLUSH Sodium Chloride (Sodium Chloride 0.9% 50 Ml Ivpb) 50 ml IV Q24HR@2100 [facility] Stop: 07/20/21 21:01 Zinc Sulfate (Zinc Sulfate 220 Mg Cap) 220 mg PO BID [facility] Last Admin: 07/16/21 10:55 Dose: 220 mg Physical Examination - Physical Exam Narrative exam: Physical Exam (reviewed in chart to minimize risk of transmission) Constitutional: deferred Head, Ears, Nose: deferred Eyes: deferred Neck: deferred Oral: deferred Cardiovascular: deferred Respiratory: deferred GI: deferred Musculoskeletal: deferred Skin: deferred Hem/Lymphatic: deferred Psych: deferred Neurological: deferred - Constitutional Vitals: Vital Signs Temp Pulse Resp BP Pulse Ox 97.8 F 87 18 162/84 100 07/16/21 11:11 07/16/21 11:11 07/16/21 11:11 07/16/21 11:11 07/16/21 11:11 Temperature -Last 24 Hours Temperature 97.8 F Temperature 97.9 F Temperature 97.6 F Temperature 98.2 F Results - Labs CBC & Chem 7: 07/15/21 03:55 07/16/21 08:17 Labs: Abnormal lab results 07/16/21 07/16/21 07/16/21 Range/Units 07:28 08:17 10:51 BUN 24 H (7-17) mg/dL Glucose 114 H (65-100) mg/dL POC Glucose 107 H 135 H (70-105) mg/dL Calcium 10.6 H (8.4-10.2) mg/dL - Imaging and Cardiology Chest x-ray: report reviewed, image reviewed (no pneumonia) Assessment and Plan Cultures: SARS CoV2 PCR: positive A/P: 71-year-old female with COPD, dementia with: #COVID-19, also some bronchiolitis and mucous plugging noted on CT, procalcitonin elevated at 1.35 suggestive of bacterial component. #Acute hypoxic respiratory failure: On nasal cannula. #COPD #Thrombocytopenia Recs: -on solumedrol, continue steroids x 10 days -IV remdesivir x 5 days -Continue empiric ceftriaxone, azithromycin for 5 days -prophylactic anticoagulation based on d-dimer per hospital protocol Anuradha Borges MD, FACP, [facility] O: [phone] F: [phone]
[2021-07-16] MEDS: cefTRIAXone/NS 2 GM/100 ML 2 GM/100 ML BAG IV SCH (14:22)
[2021-07-16 15:39] LABS: Alanine Aminotransferase 11 units/L (7-56); Albumin 3.8 g/dL (3.9-5); BUN/Creatinine Ratio 26; Blood Urea Nitrogen 23 mg/dL (7-17); Calcium 10.9 mg/dL (8.4-10.2); Hemolysis Index 5
[2021-07-16] MEDS ORDERED: SODIUM CHLORIDE 0.9% 50 ML ONE (16:03)
[2021-07-16] MEDS: SODIUM CHLORIDE 0.9% 50 ML IVPB IV SCH (16:07)
--- NOTE | 2021-07-16 19:13 | Progress Note ---
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 no evidence of bronchopneumonia.Pulmonary already consulted follow-up pulmonary evaluation recommendations -Acute hypoxia; 3 L NC oxygen Current Visit: Yes Status: Acute patient is on 3 L of supplemental oxygen this morning Patient was on room air yesterday Continue O2 titrate O2 sats to more than 90%, Will add remdesivir, patient is already on steroid Home O2 evaluation prior to discharge Prone positioning -- Positive COVID-19 infection [07/14/2019] Current Visit: Yes Status: Acute Isolation contact and droplet isolation Oxygen evaluation, today patient is on 3 L NC O2 We will add remdesivir to the regimen Prone positioning, inflammatory markers ID consult, home O2 evaluation at discharge pulse oximetry, vitamin D therapy, vitamin C therapy, zinc therapy, --Malnutrition/BMI 18 Current Visit: Yes Status: Acute Dietary supplements and supportive care Albumin within normal range -- Pneumonia Current Visit: Yes Status: Acute Leukocytosis, procalcitonin is high Continue empiric antibiotics, follow cultures Oxygen 3 L NC today --Elevated D-dimers; hypoxia Current Visit: Yes Status: Acute Check CTA to rule out PE Lower extremity venous Doppler to rule out DVT -- COVID-19 vaccination not done Current Visit: Yes Status: Acute Patient counseled, -- DVT prophylaxis Current Visit: Yes Status: Acute SCD to bilateral lower extremities while in bed, prophylactic anticoagulation --Ongoing tobacco use; Counseling smoking cessation Risks and consequences explained to the patient Spent 15 minutes Advised nicotine patch as needed -Advance care planning Current Visit: Yes Status: Acute Disease education done, care plan discussed, diagnosis discussed, prognosis discussed, patient is full code, +30 minutes. We will closely monitor the patient and adjust management as needed plan of care reviewed with the patient and her nurse 07/17/2021; CTA chest negative for PE, complains of some cough, cough medicine, nicotine patch History Interval history: I have seen and examined the patient at the bedside Patient's chart and medications reviewed No new events reported by the nursing Complains of some shortness of breath and cough Hospitalist Physical - Constitutional Vitals: Temp Pulse Resp BP Pulse Ox 98.0 F 84 18 134/75 100 07/16/21 16:38 07/16/21 16:38 07/16/21 16:38 07/16/21 16:38 07/16/21 16:38 General appearance: Present: mild distress, cachectic, other (On 3 L nasal cannula oxygen) - EENT Eyes: Present: PERRL, EOM intact - Neck Neck: Present: supple, normal ROM - Respiratory Respiratory effort: normal Respiratory: bilateral: diminished, negative: rales, rhonchi, wheezing - Cardiovascular Rhythm: regular Heart Sounds: Present: S1 & S2 - Extremities Extremities: no ischemia, No edema - Abdominal General gastrointestinal: soft, non-tender, non-distended, normal bowel sounds - Integumentary Integumentary: Present: clear, warm - Psychiatric Psychiatric: appropriate mood/affect, cooperative - Neurologic Neurologic: moves all extremities HEART Score - HEART Score Troponin: Troponin T 0.032 ng/mL (0.00-0.029) H 07/14/21 10:22 Results - Labs CBC & Chem 7: 07/15/21 03:55 07/17/21 06:54 Labs: Laboratory Last Values WBC 8.8 K/mm3 (4.5-11.0) 07/15/21 03:55 RBC 4.62 M/mm3 (3.65-5.03) 07/15/21 03:55 Hgb 13.2 gm/dl (10.1-14.3) 07/15/21 03:55 Hct 40.4 % (30.3-42.9) D 07/15/21 03:55 MCV 87 fl (79-97) 07/15/21 03:55 MCH 29 pg (28-32) 07/15/21 03:55 MCHC 33 % (30-34) 07/15/21 03:55 RDW 15.0 % (13.2-15.2) 07/15/21 03:55 Plt Count 128 K/mm3 (140-440) L 07/15/21 03:55 Lymph % (Auto) 9.9 % (13.4-35.0) L 07/15/21 03:55 [place] % (Auto) 9.3 % (0.0-7.3) H 07/15/21 03:55 Eos % (Auto) 0.0 % (0.0-4.3) 07/15/21 03:55 Baso % (Auto) 0.1 % (0.0-1.8) 07/15/21 03:55 Lymph # (Auto) 0.9 K/mm3 (1.2-5.4) L 07/15/21 03:55 [place] # (Auto) 0.8 K/mm3 (0.0-0.8) 07/15/21 03:55 Eos # (Auto) 0.0 K/mm3 (0.0-0.4) 07/15/21 03:55 Baso # (Auto) 0.0 K/mm3 (0.0-0.1) 07/15/21 03:55 Seg Neutrophils % 80.7 % (40.0-70.0) H 07/15/21 03:55 Seg Neutrophils # 7.1 K/mm3 (1.8-7.7) 07/15/21 03:55 D-Dimer 642.08 ng/mlDDU (0-234) H 07/14/21 10:22 Sodium 144 mmol/L (137-145) 07/16/21 14:51 Potassium 4.2 mmol/L (3.6-5.0) 07/16/21 14:51 Chloride 106.7 mmol/L (98-107) 07/16/21 14:51 Carbon Dioxide 23 mmol/L (22-30) 07/16/21 14:51 Anion Gap 19 mmol/L 07/16/21 14:51 BUN 23 mg/dL (7-17) H 07/16/21 14:51 Creatinine 0.9 mg/dL (0.6-1.2) 07/16/21 14:51 Estimated GFR > 60 ml/min 07/16/21 14:51 BUN/Creatinine Ratio 26 % 07/16/21 14:51 Glucose 121 mg/dL (65-100) H 07/16/21 14:51 POC Glucose 135 mg/dL (70-105) H 07/16/21 10:51 Calcium 10.9 mg/dL (8.4-10.2) H 07/16/21 14:51 Ferritin 263.2 ng/mL (10.0-200.0) H 07/14/21 10:22 Total Bilirubin < 0.20 mg/dL (0.1-1.2) 07/16/21 14:51 AST 20 units/L (5-40) 07/16/21 14:51 ALT 11 units/L (7-56) 07/16/21 14:51 Alkaline Phosphatase 70 units/L (35-129) 07/16/21 14:51 Lactate Dehydrogenase 314 units/L (91-180) H 07/14/21 10:22 Troponin T 0.032 ng/mL (0.00-0.029) H 07/14/21 10:22 C-Reactive Protein 1.60 mg/dL (0.00-1.30) H 07/14/21 10:22 Total Protein 7.1 g/dL (6.3-8.2) 07/16/21 14:51 Albumin 3.8 g/dL (3.9-5) L 07/16/21 14:51 Albumin/Globulin Ratio 1.2 % 07/16/21 14:51 Triglycerides 162 mg/dL (2-149) H 07/14/21 10:22 Cholesterol 240 mg/dL (50-199) H 07/14/21 10:22 LDL Cholesterol Direct 146 mg/dL (50-130) H 07/14/21 10:22 HDL Cholesterol 71 mg/dL (40-59) H 07/14/21 10:22 Cholesterol/HDL Ratio 3.38 % 07/14/21 10:22 Procalcitonin 1.35 ng/mL (<0.15) 07/14/21 10:22 Coronavirus (PCR) Positive (Negative) A 07/14/21 10:58 Schwarz/IV: Voiding Method Toilet Active Medications - Current Medications Current Medications: Generic Name Dose Route Start Last Admin Trade Name Freq PRN Reason Stop Dose Admin Acetaminophen 650 mg 07/15/21 07:41 Acetaminophen 325 Mg Tab PO Q4H PRN Pain MILD(1-3)/Fever >100.5/CANNON Albuterol 2.5 mg 07/14/21 12:13 Albuterol 2.5 Mg/3 Ml Nebu IH Q4HRT PRN Shortness Of Breath Ascorbic Acid 500 mg 07/14/21 22:00 07/16/21 10:55 Ascorbic Acid 500 Mg Tab PO 500 mg BID CECI Administration Azithromycin 500 mg 07/15/21 10:00 07/16/21 10:55 Azithromycin 250 Mg Tab PO 07/18/21 10:01 500 mg DAILY CECI Administration Cholecalciferol 1,000 unit 07/15/21 10:00 07/16/21 11:03 Cholecalciferol (Vit D3) 400 Unit Tab PO 1,000 unit QDAY CECI Administration Heparin Sodium (Porcine) 5,000 unit 07/14/21 22:00 07/16/21 10:55 Heparin 5,000 Unit/1 Ml Vial SUB-Q 5,000 unit Q12HR CECI Administration Hydromorphone HCl 0.5 mg 07/14/21 12:13 07/14/21 14:45 Hydromorphone 1 Mg/1 Ml Inj IV 0.5 mg Q23H PRN Administration Pain , Severe (7-10) Ceftriaxone Sodium 2 gm in 100 mls @ 200 mls/hr 07/14/21 13:00 07/16/21 14:22 Rocephin/Ns 2 Gm/100 Ml IV 07/18/21 13:29 200 mls/hr Q24H CECI Administration Protocol REMDESIVIR 100 mg/ Sodium 250 mls @ 500 mls/hr 07/17/21 21:00 Chloride IV 07/20/21 21:29 Q24HR@2100 CECI Methylprednisolone Sodium Succinate 40 mg 07/14/21 14:00 07/16/21 14:22 Methylprednisolone Sod Succinate 40 Mg/1 Ml Inj IV 40 mg Q8HR CECI Administration Ondansetron HCl 4 mg 07/14/21 12:13 Ondansetron 4 Mg/2 Ml Inj IV Q8H PRN Nausea And Vomiting Oxycodone/Acetaminophen 1 tab 07/14/21 12:13 Oxycodone /Acetaminophen 5-325mg Tab PO Q16H PRN Pain, Moderate (4-6) Sodium Chloride 10 ml 07/14/21 22:00 07/16/21 10:56 Sodium Chloride 0.9% 10 Ml Flush Syringe IV 10 ml BID CECI Administration Sodium Chloride 10 ml 07/14/21 12:13 Sodium Chloride 0.9% 10 Ml Flush Syringe IV PRN PRN LINE FLUSH Sodium Chloride 50 ml 07/16/21 21:00 07/16/21 16:07 Sodium Chloride 0.9% 50 Ml Ivpb IV 07/20/21 21:01 50 ml Q24HR@2100 CECI Administration Zinc Sulfate 220 mg 07/14/21 22:00 07/16/21 10:55 Zinc Sulfate 220 Mg Cap PO 220 mg BID CECI Administration Nutrition/Malnutrition Assess - Dietary Evaluation Nutrition/Malnutrition Findings: Nutrition Notes Start: 07/15/21 17:53 Freq: Status: Active Protocol: Document 07/15/21 17:53 PATRICIA (Rec: 07/15/21 18:10 PATRICIA [id number]) Nutrition Notes Need for Assessment generated from: Low BMI Initial or Follow up Assessment Current Diagnosis Respiratory Failure, Malnutrition Other Pertinent Diagnosis COVID-19, Pneumonia, Acute moderate protein/calorie malnutritioon. Current Diet Regular Diet (since D 07/14). Labs/Tests 07/15: Cl 97.2, BUN 25, Glu 143, Ca 10.8. Pertinent Medications 07/15: Vit C, Vit D3, ZnSO4, others nutritionally unremarkable. 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 Pt's Low BMI seems to correspond to a natural body composition, and not related to a sudden loss of body weight nor chronic malnutrition, since none were mentioned in the Physical Assessment History or the Progress notes. No report available on Pt's PO intake of meals at the time. F/U on dietary intake assessment. Percent of energy/protein needs met: Prescribed Regular Diet provides for energy/protein needs (2,289 Kcal/89 g) during LOS. Burn Absent Trauma Absent GI Symptoms None Food Allergy No Skin Integrity/Comment Clear, warm, dry. Minimum of two criteria No Is patient on ventilator? No Is Patient Ambulatory and/or Out of Bed Yes REE-([facility]-ambulatory/OOB) [ 1332.279 NUTR.MSJOOB] Kcal/Kg value to use for calculation 31 Approximate Energy Requirements Using 1547 kcal/Kg Calculation Used for Recommendations Kcal/kg Additional Notes Protein: 1-1.2 g/Kg; 50-60 g/ day. Fluids: 1 ml/Kcal, or as per MD. Nutrition Intervention Follow-Up By: 07/22/21 Additional Comments Continue monitoring food tolerance, %PO intake of meals , and BM.
[2021-07-17] MEDS: methylPREDNISolone Sod Succinate 40 MG/1 ML INJ IV SCH ×3 (05:41→23:00)
[2021-07-17 08:47] LABS: Alanine Aminotransferase 9 units/L (7-56); Albumin 3.9 g/dL (3.9-5); BUN/Creatinine Ratio 32; Blood Urea Nitrogen 19 mg/dL (7-17); Hemolysis Index 4
[2021-07-17] MEDS: SODIUM CHLORIDE 0.9% 50 ML IVPB IV SCH ×2 (10:32→23:00)
[2021-07-17] MEDS: ZINC SULFATE 220 MG CAP PO SCH ×2 (10:33→23:00)
[2021-07-17] MEDS: ASCORBIC ACID 500 MG TAB PO SCH ×2 (10:33→23:00)
[2021-07-17] MEDS: CHOLECALCIFEROL (VIT D3) 400 UNIT TAB PO SCH (10:34)
[2021-07-17] MEDS: AZITHROMYCIN 250 MG TAB PO SCH (10:34)
[2021-07-17] MEDS: HEPARIN 5,000 UNIT/1 ML VIAL SUB-Q SCH ×2 (10:34→23:00)
[2021-07-17] MEDS: cefTRIAXone/NS 2 GM/100 ML 2 GM/100 ML BAG IV SCH (14:16)
[2021-07-17] MEDS: NICOTINE 14 MG/24 HR PATCH TD SCH (15:31)
[2021-07-17] MEDS: guaiFENesin DM 200/20 MG ORAL LIQD 10 ML PO PRN (15:31)
[2021-07-17] MEDS: REMDESIVIR 100 MG in SODIUM CHLORIDE 0.9% 250ML 250 ML IV SCH (23:00)
[2021-07-18] MEDS: methylPREDNISolone Sod Succinate 40 MG/1 ML INJ IV SCH ×3 (06:27→22:28)
--- NOTE | 2021-07-18 08:59 | Progress Note ---
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 no evidence of bronchopneumonia.Pulmonary already consulted fol low-up pulmonary evaluation recommendations -Acute hypoxia; 3 L NC oxygen Current Visit: Yes Status: Acute patient is on 3 L of supplemental oxygen this morning Patient was on room air yesterday Continue O2 titrate O2 sats to more than 90%, Will add remdesivir, patient is already on steroid Home O2 evaluation prior to discharge Prone positioning -- Positive COVID-19 infection [07/14/2019] Current Visit: Yes Status: Acute Isolation contact and droplet isolation Oxygen evaluation, today patient is on 3 L NC O2 We will add remdesivir to the regimen Prone positioning, inflammatory markers ID consult, home O2 evaluation at discharge pulse oximetry, vitamin D therapy, vitamin C therapy, zinc therapy, --Malnutrition/BMI 18 Current Visit: Yes Status: Acute Dietary supplements and supportive care Albumin within normal range -- Pneumonia Current Visit: Yes Status: Acute Leukocytosis, procalcitonin is high Continue empiric antibiotics, follow cultures Oxygen 3 L NC today --Elevated D-dimers; hypoxia Current Visit: Yes Status: Acute Check CTA to rule out PE Lower extremity venous Doppler to rule out DVT -- COVID-19 vaccination not done Current Visit: Yes Status: Acute Patient counseled, -- DVT prophylaxis Current Visit: Yes Status: Acute SCD to bilateral lower extremities while in bed, prophylactic anticoagulation --Ongoing tobacco use; Counseling smoking cessation Risks and consequences explained to the patient Spent 15 minutes Advised nicotine patch as needed --Moderate to severe malnutrition; Nutrition supplements, nutrition consult And supportive care -Advance care planning Current Visit: Yes Status: Acute Disease education done, care plan discussed, diagnosis discussed, prognosis discussed, patient is full code, +30 minutes. We will closely monitor the patient and adjust management as needed plan of care reviewed with the patient and her nurse 07/17/2021; CTA chest negative for PE, complains of some cough, cough medicine, nicotine patch 07/18/2021; CTA chest, possible mucous plugs. Bronchiolitis, pulmonary consulted ID evaluation noted and appreciated History Interval history: I have have seen and examined the patient at the bedside this morning Isolation precautions and PPE protocols observed per CDC guidelines Patient complains of mild shortness of breath Currently on 2 L of nasal cannula oxygen Hospitalist Physical - Constitutional Vitals: Temp Pulse Resp BP Pulse Ox 97.4 F L 71 16 138/79 98 07/18/21 03:26 07/18/21 03:26 07/18/21 03:26 07/18/21 03:26 07/18/21 03:26 General appearance: Present: mild distress, cachectic, other (On 3 L nasal cannula oxygen) - EENT Eyes: Present: PERRL, EOM intact - Respiratory Respiratory effort: normal Respiratory: bilateral: diminished, rhonchi, negative: rales, wheezing - Cardiovascular Rhythm: regular Heart Sounds: Present: S1 & S2 - Extremities Extremities: no ischemia, No edema - Abdominal General gastrointestinal: soft, non-tender, non-distended, normal bowel sounds - Integumentary Integumentary: Present: clear, warm - Psychiatric Psychiatric: appropriate mood/affect, cooperative - Neurologic Neurologic: CNII-XII intact, moves all extremities HEART Score - HEART Score Troponin: Troponin T 0.032 ng/mL (0.00-0.029) H 07/14/21 10:22 Results - Labs CBC & Chem 7: 07/15/21 03:55 07/19/21 04:54 Labs: Laboratory Last Values WBC 8.8 K/mm3 (4.5-11.0) 07/15/21 03:55 RBC 4.62 M/mm3 (3.65-5.03) 07/15/21 03:55 Hgb 13.2 gm/dl (10.1-14.3) 07/15/21 03:55 Hct 40.4 % (30.3-42.9) D 07/15/21 03:55 MCV 87 fl (79-97) 07/15/21 03:55 MCH 29 pg (28-32) 07/15/21 03:55 MCHC 33 % (30-34) 07/15/21 03:55 RDW 15.0 % (13.2-15.2) 07/15/21 03:55 Plt Count 128 K/mm3 (140-440) L 07/15/21 03:55 Lymph % (Auto) 9.9 % (13.4-35.0) L 07/15/21 03:55 [place] % (Auto) 9.3 % (0.0-7.3) H 07/15/21 03:55 Eos % (Auto) 0.0 % (0.0-4.3) 07/15/21 03:55 Baso % (Auto) 0.1 % (0.0-1.8) 07/15/21 03:55 Lymph # (Auto) 0.9 K/mm3 (1.2-5.4) L 07/15/21 03:55 [place] # (Auto) 0.8 K/mm3 (0.0-0.8) 07/15/21 03:55 Eos # (Auto) 0.0 K/mm3 (0.0-0.4) 07/15/21 03:55 Baso # (Auto) 0.0 K/mm3 (0.0-0.1) 07/15/21 03:55 Seg Neutrophils % 80.7 % (40.0-70.0) H 07/15/21 03:55 Seg Neutrophils # 7.1 K/mm3 (1.8-7.7) 07/15/21 03:55 D-Dimer 642.08 ng/mlDDU (0-234) H 07/14/21 10:22 Sodium 142 mmol/L (137-145) 07/17/21 06:54 Potassium 4.3 mmol/L (3.6-5.0) 07/17/21 06:54 Chloride 105.2 mmol/L (98-107) 07/17/21 06:54 Carbon Dioxide 24 mmol/L (22-30) 07/17/21 06:54 Anion Gap 17 mmol/L 07/17/21 06:54 BUN 19 mg/dL (7-17) H 07/17/21 06:54 Creatinine 0.6 mg/dL (0.6-1.2) 07/17/21 06:54 Estimated GFR > 60 ml/min 07/17/21 06:54 BUN/Creatinine Ratio 32 % 07/17/21 06:54 Glucose 114 mg/dL (65-100) H 07/17/21 06:54 POC Glucose 147 mg/dL (70-105) H 07/18/21 07:46 Calcium 11.0 mg/dL (8.4-10.2) H 07/17/21 06:54 Ferritin 263.2 ng/mL (10.0-200.0) H 07/14/21 10:22 Total Bilirubin < 0.20 mg/dL (0.1-1.2) 07/17/21 06:54 AST 16 units/L (5-40) 07/17/21 06:54 ALT 9 units/L (7-56) 07/17/21 06:54 Alkaline Phosphatase 63 units/L (35-129) 07/17/21 06:54 Lactate Dehydrogenase 314 units/L (91-180) H 07/14/21 10:22 Troponin T 0.032 ng/mL (0.00-0.029) H 07/14/21 10:22 C-Reactive Protein 1.60 mg/dL (0.00-1.30) H 07/14/21 10:22 Total Protein 6.8 g/dL (6.3-8.2) 07/17/21 06:54 Albumin 3.9 g/dL (3.9-5) 07/17/21 06:54 Albumin/Globulin Ratio 1.3 % 07/17/21 06:54 Triglycerides 162 mg/dL (2-149) H 07/14/21 10:22 Cholesterol 240 mg/dL (50-199) H 07/14/21 10:22 LDL Cholesterol Direct 146 mg/dL (50-130) H 07/14/21 10:22 HDL Cholesterol 71 mg/dL (40-59) H 07/14/21 10:22 Cholesterol/HDL Ratio 3.38 % 07/14/21 10:22 Procalcitonin 1.35 ng/mL (<0.15) 07/14/21 10:22 Coronavirus (PCR) Positive (Negative) A 07/14/21 10:58 Schwarz/IV: Voiding Method Bedpan Active Medications - Current Medications Current Medications: Generic Name Dose Route Start Last Admin Trade Name Freq PRN Reason Stop Dose Admin Acetaminophen 650 mg 07/15/21 07:41 Acetaminophen 325 Mg Tab PO Q4H PRN Pain MILD(1-3)/Fever >100.5/CANNON Albuterol 2.5 mg 07/14/21 12:13 Albuterol 2.5 Mg/3 Ml Nebu IH Q4HRT PRN Shortness Of Breath Ascorbic Acid 500 mg 07/14/21 22:00 07/17/21 23:00 Ascorbic Acid 500 Mg Tab PO 500 mg BID CECI Administration Azithromycin 500 mg 07/15/21 10:00 07/17/21 10:34 Azithromycin 250 Mg Tab PO 07/18/21 10:01 500 mg DAILY CECI Administration Cholecalciferol 1,000 unit 07/15/21 10:00 07/17/21 10:34 Cholecalciferol (Vit D3) 400 Unit Tab PO 1,000 unit QDAY CECI Administration Guaifenesin 10 ml 07/17/21 15:30 07/17/21 15:31 Guaifenesin Dm 200/20 Mg Oral Liqd 10 Ml PO 10 ml Q4H PRN Administration Cough Heparin Sodium (Porcine) 5,000 unit 07/14/21 22:00 07/17/21 23:00 Heparin 5,000 Unit/1 Ml Vial SUB-Q 5,000 unit Q12HR CECI Administration Hydromorphone HCl 0.5 mg 07/14/21 12:13 07/14/21 14:45 Hydromorphone 1 Mg/1 Ml Inj IV 0.5 mg Q23H PRN Administration Pain , Severe (7-10) Ceftriaxone Sodium 2 gm in 100 mls @ 200 mls/hr 07/14/21 13:00 07/17/21 14:16 Rocephin/Ns 2 Gm/100 Ml IV 07/18/21 13:29 200 mls/hr Q24H CECI Administration Protocol REMDESIVIR 100 mg/ Sodium 250 mls @ 500 mls/hr 07/17/21 21:00 07/17/21 23:00 Chloride IV 07/20/21 21:29 500 mls/hr Q24HR@2100 CECI Administration Methylprednisolone Sodium Succinate 40 mg 07/14/21 14:00 07/18/21 06:27 Methylprednisolone Sod Succinate 40 Mg/1 Ml Inj IV 40 mg Q8HR CECI Administration Nicotine 14 mg 07/17/21 15:00 07/17/21 15:31 Nicotine 14 Mg/24 Hr Patch TD 14 mg QDAY CECI Administration Ondansetron HCl 4 mg 07/14/21 12:13 Ondansetron 4 Mg/2 Ml Inj IV Q8H PRN Nausea And Vomiting Oxycodone/Acetaminophen 1 tab 07/14/21 12:13 Oxycodone /Acetaminophen 5-325mg Tab PO Q16H PRN Pain, Moderate (4-6) Sodium Chloride 10 ml 07/14/21 22:00 07/17/21 23:00 Sodium Chloride 0.9% 10 Ml Flush Syringe IV 10 ml BID CECI Administration Sodium Chloride 10 ml 07/14/21 12:13 Sodium Chloride 0.9% 10 Ml Flush Syringe IV PRN PRN LINE FLUSH Sodium Chloride 50 ml 07/16/21 21:00 07/17/21 23:00 Sodium Chloride 0.9% 50 Ml Ivpb IV 07/20/21 21:01 50 ml Q24HR@2100 CECI Administration Zinc Sulfate 220 mg 07/14/21 22:00 07/17/21 23:00 Zinc Sulfate 220 Mg Cap PO 220 mg BID CECI Administration Nutrition/Malnutrition Assess - Dietary Evaluation Nutrition/Malnutrition Findings: Nutrition Notes Start: 07/15/21 17:53 Freq: Status: Active Protocol: Document 07/15/21 17:53 PATRICIA (Rec: 07/15/21 18:10 PATRICIA [id number]) Nutrition Notes Need for Assessment generated from: Low BMI Initial or Follow up Assessment Current Diagnosis Respiratory Failure, Malnutrition Other Pertinent Diagnosis COVID-19, Pneumonia, Acute moderate protein/calorie malnutritioon. Current Diet Regular Diet (since D 07/14). Labs/Tests 07/15: Cl 97.2, BUN 25, Glu 143, Ca 10.8. Pertinent Medications 07/15: Vit C, Vit D3, ZnSO4, others nutritionally unremarkable. 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 Weight Status Underweight Subjective/Other Information RD consult for Low BMI assessment. Pt's Low BMI seems to correspond to a natural body composition, and not related to a sudden loss of body weight nor chronic malnutrition, since none were mentioned in the Physical Assessment History or the Progress notes. No report available on Pt's PO intake of meals at the time. F/U on dietary intake assessment. Percent of energy/protein needs met: Prescribed Regular Diet provides for energy/protein needs (2,289 Kcal/89 g) during LOS. Burn Absent Trauma Absent GI Symptoms None Food Allergy No Skin Integrity/Comment Clear, warm, dry. Minimum of two criteria No Is patient on ventilator? No Is Patient Ambulatory and/or Out of Bed Yes REE-([place] [facility]-ambulatory/OOB) [ 1332.279 NUTR.MSJOOB] Kcal/Kg value to use for calculation 31 Approximate Energy Requirements Using 1547 kcal/Kg Calculation Used for Recommendations Kcal/kg Additional Notes Protein: 1-1.2 g/Kg; 50-60 g/ day. Fluids: 1 ml/Kcal, or as per MD. Nutrition Intervention Follow-Up By: 07/22/21 Additional Comments Continue monitoring food tolerance, %PO intake of meals , and BM.
[2021-07-18] MEDS: AZITHROMYCIN 250 MG TAB PO SCH (09:13)
[2021-07-18] MEDS: HEPARIN 5,000 UNIT/1 ML VIAL SUB-Q SCH ×2 (09:14→22:28)
[2021-07-18] MEDS: NICOTINE 14 MG/24 HR PATCH TD SCH (09:14)
[2021-07-18] MEDS: ZINC SULFATE 220 MG CAP PO SCH ×2 (09:14→22:28)
[2021-07-18] MEDS: CHOLECALCIFEROL (VIT D3) 400 UNIT TAB PO SCH (09:14)
[2021-07-18] MEDS: ASCORBIC ACID 500 MG TAB PO SCH ×2 (09:14→22:52)
[2021-07-18 11:28] LABS: Alanine Aminotransferase 9 units/L (7-56); Albumin 3.7 g/dL (3.9-5); Blood Urea Nitrogen 20 mg/dL (7-17); Calcium 11.3 mg/dL (8.4-10.2); Hemolysis Index 19
[2021-07-18 11:29] LABS: BUN/Creatinine Ratio 29
--- NOTE | 2021-07-18 13:50 | Vascular Lab Report ---
DUPLEX DOPPLER LOWER EXTREMITY VEINS, BILATERAL INDICATION / CLINICAL INFORMATION: COVID-19/hypoxia/elevated D-dimers/rule out DVT. TECHNIQUE: Duplex doppler imaging was performed through the veins of both lower extremities using venous kristi dudley and other maneuvers. COMPARISON: None available. FINDINGS: RIGHT COMMON FEMORAL VEIN: Negative. RIGHT FEMORAL VEIN: Negative. RIGHT POPLITEAL VEIN: Negative. RIGHT CALF VEINS: Negative. LEFT COMMON FEMORAL VEIN: Negative. LEFT FEMORAL VEIN: Negative. LEFT POPLITEAL VEIN: Negative. LEFT CALF VEINS: Negative. ADDITIONAL FINDINGS: None. IMPRESSION: 1. No sonographic evidence for DVT in either lower extremity. Signer Name: Miguel Tavarez MD Signed: 07/18/2021 1:45 PM Workstation Name: [email or web address]
--- NOTE | 2021-07-18 14:12 | Progress Note ---
Assessment and Plan Cultures: SARS CoV2 PCR: positive A/P: 71-year-old female with COPD, dementia with: #COVID-19, also some bronchiolitis and mucous plugging noted on CT, procalcitonin elevated at 1.35 suggestive of bacterial component. #Acute hypoxic respiratory failure: On nasal cannula. #COPD #Thrombocytopenia Recs: -on solumedrol, continue steroids x 10 days -IV remdesivir x 5 days -Continue empiric ceftriaxone, azithromycin for 5 days -prophylactic anticoagulation based on d-dimer per hospital protocol Anuradha Borges MD, FACP, [facility] ([facility] O: [phone] F: [phone] Subjective Date of service: 07/18/21 Interval history: No fever. Remains on oxygen by Pr. Objective - Exam Narrative Exam: Physical Exam (reviewed in chart to minimize risk of transmission) Constitutional: deferred Head, Ears, Nose: deferred Eyes: deferred Neck: deferred Oral: deferred Cardiovascular: deferred Respiratory: deferred GI: deferred Musculoskeletal: deferred Skin: deferred Hem/Lymphatic: deferred Psych: deferred Neurological: deferred - Constitutional Vitals: Vital Signs Temp Pulse Resp BP Pulse Ox 97.4 F L 71 16 138/79 98 07/18/21 03:26 07/18/21 03:26 07/18/21 03:26 07/18/21 03:26 07/18/21 03:26 Temperature -Last 24 Hours Temperature 97.4 F Temperature 98.0 F Temperature 98.4 F - Labs CBC & Chem 7: 07/15/21 03:55 07/18/21 10:14 Labs: Abnormal lab results 07/17/21 07/17/21 07/18/21 Range/Units 15:52 22:45 07:46 BUN (7-17) mg/dL Glucose (65-100) mg/dL POC Glucose 122 H 121 H 147 H (70-105) mg/dL Calcium (8.4-10.2) mg/dL Albumin (3.9-5) g/dL 07/18/21 07/18/21 Range/Units 10:14 11:04 BUN 20 H (7-17) mg/dL Glucose 175 H (65-100) mg/dL POC Glucose 166 H (70-105) mg/dL Calcium 11.3 H (8.4-10.2) mg/dL Albumin 3.7 L (3.9-5) g/dL
--- NOTE | 2021-07-18 14:17 | Consultation ---
History of Present Illness Consult date: 07/18/21 Reason for consult: dyspnea, cough, COPD History of present illness: 71 YO Female with COPD presents ED for evaluation. Patient is confused with dementia . Patient history taken from EMS staff, ED staff. The patient notified EMS due to difficulty breathing. EMS notified and upon arrival the patient was found to be in distress with a pulse oximetry of 86% on room air. The patient was placed on supplemental oxygen and transported to [facility] for further care and evaluation of the aforementioned symptoms. The patient was seen and evaluated in the emergency department. The patient was to have a pulse oximetry of 86% on room air which is consistent with acute hypoxemic respiratory failure. The patient was placed on supplemental oxygen without significant improvement in symptoms. The patient was placed on noninvasive positive pressure ventilation with mild improvement in symptoms. Patient is using accessory muscles to breathe, is unable to speak in complete sentences. Chest x-ray showed evidence of pneumonia. Patient admitted to [facility] and initiated on pneumonia protocol as well as coronavirus protocol. Pulmonary team consulted in ED. Infectious disease team consulted in ED. Patient has history of COPD and Hypertension. Pat ient treated for acute exacerbation of COPD with I/V solumedrol, Bronchodilators, Zithromax and ceftriaxone and S/C Heparin. Patient also positive for Alatorre virus. Patient presently on I/V solumedrol, REMDESIVIR, S/C heparin. Patient transfered to medical floor. Patient awake. On 4 litres O2. O2 saturation 95%. Patient denies chest pain or shortness of breath at this time. Complaining slight cough. Patient admits now she has history of smoking 1 pack of cigaretts for many years. Still smoking. Counseled to stop smoking. Says drinks alcohol once in a while. Denies drug abuse. 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 No known drug allergies. Patient afebrile. No leukocytosis. Blood pressure 138/79, pulse 71, respirations 16. Chest xray done 07/14/21 reported no acute abnormality. CTA of chest done on 07/16/21 reported No evidence for pulmonary embolism. Prominent areas of bronchial wall thickening in the lung bases with scattered areas of mucous plugging. Findings most likely reflect lower lower airways disease/bronchiolitis. No evidence of bronchopneumonia. Venous doppler studies of lower extremities done 1/15/22 reported No sonographic evidence for DVT in either lower extremity. Patient presently on I/V solumedrol, REMDESIVIR, S/C heparin, Albuterol inhaler and Acetylcysteine Past History Past Medical History: COPD, other (See HPI) Past Surgical History: No surgical history, Other (Reviewed) Social history: single. denies: smoking, alcohol abuse, prescription drug abuse Family history: hypertension Medications and Allergies Allergies Allergy/AdvReac Type Severity Reaction Status Date / Time No Known Allergies Allergy Verified 07/14/21 12:02 Active Meds: Active Medications Acetaminophen (Acetaminophen 325 Mg Tab) 650 mg PO Q4H PRN PRN Reason: Pain MILD(1-3)/Fever >100.5/CANNON Acetylcysteine (Acetylcysteine 20% 200 Mg/1 Ml *For Inhalation Use*) 200 mg INHALATION Q12HRT [facility] Albuterol (Albuterol 2.5 Mg/3 Ml Nebu) 2.5 mg IH Q4HRT PRN PRN Reason: Shortness Of Breath Ascorbic Acid (Ascorbic Acid 500 Mg Tab) 500 mg PO BID [facility] Last Admin: 07/18/21 09:14 Dose: 500 mg Cholecalciferol (Cholecalciferol (Vit D3) 400 Unit Tab) 1,000 unit PO QDAY [facility] Last Admin: 07/18/21 09:14 Dose: 1,000 unit Guaifenesin (Guaifenesin Dm 200/20 Mg Oral Liqd 10 Ml) 10 ml PO Q4H PRN PRN Reason: Cough Last Admin: 07/17/21 15:31 Dose: 10 ml Heparin Sodium (Porcine) (Heparin 5,000 Unit/1 Ml Vial) 5,000 unit SUB-Q Q12HR [facility] Last Admin: 07/18/21 09:14 Dose: 5,000 unit Hydromorphone HCl (Hydromorphone 1 Mg/1 Ml Inj) 0.5 mg IV Q23H PRN PRN Reason: Pain , Severe (7-10) Last Admin: 07/14/21 14:45 Dose: 0.5 mg REMDESIVIR 100 mg/ Sodium (Chloride) 250 mls @ 500 mls/hr IV Q24HR@2100 [facility] Stop: 07/20/21 21:29 Last Admin: 07/17/21 23:00 Dose: 500 mls/hr Methylprednisolone Sodium Succinate (Methylprednisolone Sod Succinate 40 Mg/1 Ml Inj) 40 mg IV Q8HR [facility] Last Admin: 07/18/21 06:27 Dose: 40 mg Nicotine (Nicotine 14 Mg/24 Hr Patch) 14 mg TD QDAY [facility] Last Admin: 07/18/21 09:14 Dose: 14 mg Ondansetron HCl (Ondansetron 4 Mg/2 Ml Inj) 4 mg IV Q8H PRN PRN Reason: Nausea And Vomiting Oxycodone/Acetaminophen (Oxycodone /Acetaminophen 5-325mg Tab) 1 tab PO Q16H PRN PRN Reason: Pain, Moderate (4-6) Sodium Chloride (Sodium Chloride 0.9% 10 Ml Flush Syringe) 10 ml IV BID [facility] Last Admin: 07/18/21 09:15 Dose: 10 ml Sodium Chloride (Sodium Chloride 0.9% 10 Ml Flush Syringe) 10 ml IV PRN PRN PRN Reason: LINE FLUSH Sodium Chloride (Sodium Chloride 0.9% 50 Ml Ivpb) 50 ml IV Q24HR@2100 [facility] Stop: 07/20/21 21:01 Last Admin: 07/17/21 23:00 Dose: 50 ml Zinc Sulfate (Zinc Sulfate 220 Mg Cap) 220 mg PO BID [facility] Last Admin: 07/18/21 09:14 Dose: 220 mg Review of Systems All systems: negative Physical Examination Vital signs: Vital Signs Temp Pulse Resp BP Pulse Ox 97.6 F 111 H 24 149/87 100 07/14/21 09:57 07/14/21 09:57 07/14/21 09:57 07/14/21 09:57 07/14/21 09:57 General appearance: no acute distress, alert, other (Weak and irritable.) Eyes: non-icteric ENT: oropharynx moist Neck: supple, no lymphadenopathy Effort: mildly labored Ascultation: Bilateral: diminished breath sounds, other (Prolonged expiratory phase.) Cardiovascular: regular rate and rhythm Gastrointestinal: normoactive bowel sounds, soft, non-tender Integumentary: normal Extremities: no cyanosis, no edema Musculoskeletal: no deformities Gait: other (Resting in bed at this time.) non-focal exam, pupils equal and round, CN II-XII normal anxious Results - Laboratory Findings CBC and BMP: 07/15/21 03:55 07/19/21 04:54 PT/INR, D-dimer D-Dimer 642.08 ng/mlDDU (0-234) H 07/14/21 10:22 Abnormal lab findings: Abnormal Labs 07/14/21 07/14/21 07/14/21 10:22 10:22 10:22 WBC 11.4 H RBC 5.44 H Hgb 15.4 H Hct 47.0 H Plt Count Lymph % (Auto) 7.6 L [place] % (Auto) Lymph # (Auto) 0.9 L Seg Neutrophils % 87.2 H Seg Neutrophils # 9.9 H D-Dimer 642.08 H Chloride 97.2 L BUN 25 H Glucose 143 H POC Glucose Calcium 10.8 H Ferritin Lactate Dehydrogenase Troponin T 0.032 H C-Reactive Protein Albumin Triglycerides 162 H Cholesterol 240 H LDL Cholesterol Direct 146 H HDL Cholesterol 71 H Coronavirus (PCR) 07/14/21 07/14/21 07/14/21 10:22 10:22 10:58 WBC RBC Hgb Hct Plt Count Lymph % (Auto) [place] % (Auto) Lymph # (Auto) Seg Neutrophils % Seg Neutrophils # D-Dimer Chloride BUN Glucose 144 H POC Glucose Calcium Ferritin 263.2 H Lactate Dehydrogenase 314 H Troponin T C-Reactive Protein 1.60 H Albumin Triglycerides Cholesterol LDL Cholesterol Direct HDL Cholesterol Coronavirus (PCR) Positive A 07/15/21 07/16/21 07/16/21 03:55 07:28 08:17 WBC RBC Hgb Hct Plt Count 128 L Lymph % (Auto) 9.9 L [place] % (Auto) 9.3 H Lymph # (Auto) 0.9 L Seg Neutrophils % 80.7 H Seg Neutrophils # D-Dimer Chloride BUN 24 H Glucose 114 H POC Glucose 107 H Calcium 10.6 H Ferritin Lactate Dehydrogenase Troponin T C-Reactive Protein Albumin Triglycerides Cholesterol LDL Cholesterol Direct HDL Cholesterol Coronavirus (PCR) 07/16/21 07/16/21 07/16/21 10:51 14:51 21:42 WBC RBC Hgb Hct Plt Count Lymph % (Auto) [place] % (Auto) Lymph # (Auto) Seg Neutrophils % Seg Neutrophils # D-Dimer Chloride BUN 23 H Glucose 121 H POC Glucose 135 H 127 H Calcium 10.9 H Ferritin Lactate Dehydrogenase Troponin T C-Reactive Protein Albumin 3.8 L Triglycerides Cholesterol LDL Cholesterol Direct HDL Cholesterol Coronavirus (PCR) 07/17/21 07/17/21 07/17/21 06:54 07:42 10:49 WBC RBC Hgb Hct Plt Count Lymph % (Auto) [place] % (Auto) Lymph # (Auto) Seg Neutrophils % Seg Neutrophils # D-Dimer Chloride BUN 19 H Glucose 114 H POC Glucose 122 H 136 H Calcium 11.0 H Ferritin Lactate Dehydrogenase Troponin T C-Reactive Protein Albumin Triglycerides Cholesterol LDL Cholesterol Direct HDL Cholesterol Coronavirus (PCR) 07/17/21 07/17/21 07/18/21 15:52 22:45 07:46 WBC RBC Hgb Hct Plt Count Lymph % (Auto) [place] % (Auto) Lymph # (Auto) Seg Neutrophils % Seg Neutrophils # D-Dimer Chloride BUN Glucose POC Glucose 122 H 121 H 147 H Calcium Ferritin Lactate Dehydrogenase Troponin T C-Reactive Protein Albumin Triglycerides Cholesterol LDL Cholesterol Direct HDL Cholesterol Coronavirus (PCR) 07/18/21 07/18/21 10:14 11:04 WBC RBC Hgb Hct Plt Count Lymph % (Auto) [place] % (Auto) Lymph # (Auto) Seg Neutrophils % Seg Neutrophils # D-Dimer Chloride BUN 20 H Glucose 175 H POC Glucose 166 H Calcium 11.3 H Ferritin Lactate Dehydrogenase Troponin T C-Reactive Protein Albumin 3.7 L Triglycerides Cholesterol LDL Cholesterol Direct HDL Cholesterol Coronavirus (PCR) - Diagnostic Findings Chest x-ray: report reviewed, image reviewed CT scan - chest: report reviewed, image reviewed U/S of Legs: report reviewed, image reviewed Additional studies: CHEST 1 VIEW 07/14/2021 10:49 AM INDICATION / CLINICAL INFORMATION: hypoxia. COMPARISON: None available. FINDINGS: SUPPORT DEVICES: None. HEART / MEDIASTINUM: No significant abnormality. LUNGS / PLEURA: The lungs are clear and hyperexpanded. No significant pleural effusion. No pneumothorax. ADDITIONAL FINDINGS: No significant additional findings. IMPRESSION: 1. No acute abnormality of the chest. CT angio chest 07/16/21 INDICATION / CLINICAL INFORMATION: Hypoxia/COVID/elevated D-dimers/rule out PE. TECHNIQUE: Axial CT images were obtained through the chest after injection of 70 cc of Omnipaque 350 IV contrast. 3 plane MIP and/or 3D reconstructions were produced. All CT scans at this location are performed using CT dose reduction for ALARA by means of automated exposure control. COMPARISON: Same day chest radiograph FINDINGS: PULMONARY ARTERIES: No central or segmental pulmonary embolus. THORACIC AORTA: Calcified atherosclerotic plaque is noted throughout the nonane urysmal thoracic aorta and major braches, to include the coronary arteries. HEART: No significant abnormality. LYMPHADENOPATHY: Mildly enlarged mediastinal lymph nodes are likely reactive. LUNGS/PLEURA: The lungs are hyperexpanded with emphysema. Prominent areas of bronchial wall thickening within the lung bases with scattered areas of mucous plugging. There is no airspace consolidation. No pleural effusion or pneumothorax. OTHER FINDINGS: None. UPPER ABDOMEN: No acute findings. 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 No acute osseous findings. IMPRESSION: 1. No evidence for pulmonary embolism. 2. Prominent areas of bronchial wall thickening in the lung bases with scattered areas of mucous plugging. Findings most likely reflect lower lower airways disease/bronchiolitis. No evidence of bronchopneumonia. DUPLEX DOPPLER LOWER EXTREMITY VEINS, BILATERAL 07/16/21 INDICATION / CLINICAL INFORMATION: COVID-19/hypoxia/elevated D-dimers/rule out DVT. TECHNIQUE: Duplex doppler imaging was performed through the veins of both lower extremities using venous compression and other maneuvers. COMPARISON: None available. FINDINGS: RIGHT COMMON FEMORAL VEIN: Negative. RIGHT FEMORAL VEIN: Negative. RIGHT POPLITEAL VEIN: Negative. RIGHT CALF VEINS: Negative. LEFT COMMON FEMORAL VEIN: Negative. LEFT FEMORAL VEIN: Negative. LEFT POPLITEAL VEIN: Negative. LEFT CALF VEINS: Negative. ADDITIONAL FINDINGS: None. IMPRESSION: 1. No sonographic evidence for DVT in either lower extremity. Assessment and Plan 71 YO Female with COPD presents ED for evaluation. Patient is confused with dementia . Patient history taken from EMS staff, ED staff. The patient notified EMS due to difficulty breathing. EMS notified and upon arrival the patient was found to be in distress with a pulse oximetry of 86% on room air. The patient was placed on supplemental oxygen and transported to [facility] for further care and evaluation of the aforementioned symptoms. The patient was seen and evaluated in the emergency department. The patient was to have a pulse oximetry of 86% on room air which is consistent with acute hypoxemic respiratory failure. The patient was placed on supplemental oxygen without significant improvement in symptoms. The patient was placed on noninvasive positive pressure ventilation with mild improvement in symptoms. Patient is using accessory muscles to breathe, is unable to speak in complete sentences. Chest x-ray showed evidence of pneumonia. Patient admitted to [facility] and initiated on pneumonia protocol as well as coronavirus protocol. Pulmonary team consulted in ED. Infectious disease team consulted in ED. Patient has history of COPD and Hypertension. Patient treated for acute exacerbation of COPD with I/V solumedrol, Bronchodilators, Zithromax and ceftriaxone and S/C Heparin. Patient also positive for Alatorre virus. Patient presently on I/V solumedrol, REMDESIVIR, S/C heparin. Patient transfered to medical floor. Patient awake. On 4 litres O2. O2 saturation 95%. Patient denies chest pain or shortness of breath at this time. Complaining slight cough. Patient admits now she has history of smoking 1 pack of cigaretts for many years. Still smoking. Counseled to stop smoking. Says drinks alcohol once in a while. Denies drug abuse. 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 No known drug allergies. Patient afebrile. No leukocytosis. Blood pressure 138/79, pulse 71, respirations 16. Chest xray done 07/14/21 reported no acute abnormality. CTA of chest done on 07/16/21 reported No evidence for pulmonary embolism. Prominent areas of bronchial wall thickening in the lung bases with scattered areas of mucous plugging. Findings most likely reflect lower lower airways disease/bronchiolitis. No evidence of bronchopneumonia. Venous doppler studies of lower extremities done 07/16/21 reported No sonographic evidence for DVT in either lower extremity. Patient presently on I/V solumedrol, REMDESIVIR, S/C heparin, Albuterol inhaler and Acetylcysteine.. I spent critical care time of 40 minutes, obtaining the history, review the cuco t, examine the patient, review labs and xray results, talking to the nursing staff and work up plan of treatment in the patient with alatorre virus positive and with hypoxic respiratory failure. - Patient Problems (1) Acute hypoxemic respiratory failure Current Visit: Yes Status: Acute Plan to address problem: O2 4 litres via nasal canula. Continue I/V solumedrol Albuterol inhaler, Acetylcysteine. S/C Heparin Recommend GI Prophylaxis. (2) COPD with exacerbation Current Visit: Yes Status: Acute Plan to address problem: O2 4 litres via nasal canula. Continue I/V solumedrol Albuterol inhaler, Acetylcysteine. S/C Heparin Recommend GI Prophylaxis. (3) Malnutrition Current Visit: Yes Status: Acute Qualifiers: Malnutrition type: protein-calorie malnutrition Protein-calorie malnutrition severity: moderate Qualified Code(s): E44.0 - Moderate protein- calorie malnutrition Plan to address problem: Dietary consultation. (4) Coronavirus infection Current Visit: Yes Status: Acute Plan to address problem: O2 4 litres via nasal canula. Continue I/V solumedrol Patient is on REMDESIVIR S/C Lovenox. Management as per infectious diseases.
[2021-07-18] MEDS: cefTRIAXone/NS 2 GM/100 ML 2 GM/100 ML BAG IV SCH (14:33)
[2021-07-18] MEDS: ACETYLCYSTEINE 20% 200 MG/1 ML *FOR INHALATION USE INHALATION SCH (22:27)
[2021-07-18] MEDS: REMDESIVIR 100 MG in SODIUM CHLORIDE 0.9% 250ML 250 ML IV SCH (22:27)
[2021-07-18] MEDS: SODIUM CHLORIDE 0.9% 50 ML IVPB IV SCH (22:28)
[2021-07-19] MEDS: methylPREDNISolone Sod Succinate 40 MG/1 ML INJ IV SCH ×3 (05:21→21:39)
[2021-07-19 05:38] LABS: Alanine Aminotransferase 7 units/L (7-56); Albumin 3.4 g/dL (3.9-5); Blood Urea Nitrogen 20 mg/dL (7-17); Calcium 10.4 mg/dL (8.4-10.2); Hemolysis Index 3
[2021-07-19 05:39] LABS: BUN/Creatinine Ratio 33
[2021-07-19] MEDS: ACETYLCYSTEINE 20% 200 MG/1 ML *FOR INHALATION USE INHALATION SCH ×2 (09:00→23:50)
--- NOTE | 2021-07-19 09:18 | Progress Note ---
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 no evidence of bronchopneumonia.Pulmonary already consulted fol low-up pulmonary evaluation recommendations -Acute hypoxia; 3 L NC oxygen Current Visit: Yes Status: Acute patient is on 3 L of supplemental oxygen this morning Patient was on room air yesterday Continue O2 titrate O2 sats to more than 90%, Will add remdesivir, patient is already on steroid Home O2 evaluation prior to discharge Prone positioning -- Positive COVID-19 infection [07/14/2019] Current Visit: Yes Status: Acute Isolation contact and droplet isolation Oxygen evaluation, today patient is on 3 L NC O2 We will add remdesivir to the regimen Prone positioning, inflammatory markers ID consult, home O2 evaluation at discharge pulse oximetry, vitamin D therapy, vitamin C therapy, zinc therapy, --Malnutrition/BMI 18 Current Visit: Yes Status: Acute Dietary supplements and supportive care Albumin within normal range -- Pneumonia Current Visit: Yes Status: Acute Leukocytosis, procalcitonin is high Continue empiric antibiotics, follow cultures Oxygen 3 L NC today --Elevated D-dimers; hypoxia Current Visit: Yes Status: Acute Check CTA to rule out PE Lower extremity venous Doppler to rule out DVT -- COVID-19 vaccination not done Current Visit: Yes Status: Acute Patient counseled, -- DVT prophylaxis Current Visit: Yes Status: Acute SCD to bilateral lower extremities while in bed, prophylactic anticoagulation --Ongoing tobacco use; Counseling smoking cessation Risks and consequences explained to the patient Spent 15 minutes Advised nicotine patch as needed -Advance care planning Current Visit: Yes Status: Acute Disease education done, care plan discussed, diagnosis discussed, prognosis discussed, patient is full code, +30 minutes. We will closely monitor the patient and adjust management as needed plan of care reviewed with the patient and her nurse Brief history and daily hospital course: 71-year-old female patient with significant history of COPD dementia was admitted with worsening shortness of breath and hypoxia, tested positive for COVID-19, hypoxia with supplemental nasal cannula oxygen, ID evaluated, on steroid and remdesivir CTA chest findings consistent with possible bronchiolitis and mucous plugs, pulmonary consulted work-up is in progress 07/17/2021; CTA chest negative for PE, complains of some cough, cough medicine, nicotine patch 07/18/2021; CTA chest, possible mucous plugs. Bronchiolitis, pulmonary consulted ID evaluation noted and appreciated 07/19/2021; abnormal CTA findings, pulmonary consulted follow recommendations Disposition; evaluate for home oxygen, discharge when medically stable and cleared by consultants History Interval history: I have seen and examined the patient at the bedside Patient's chart and medications reviewed Isolation precautions PPI protocol strictly followed Patient has some shortness of breath and cough Hospitalist Physical - Constitutional Vitals: Temp Pulse Resp BP Pulse Ox 98.2 F 62 18 137/79 100 07/19/21 05:38 07/19/21 05:38 07/19/21 05:38 07/19/21 05:38 07/19/21 05:38 General appearance: Present: mild distress, cachectic, other (On 3 L nasal cannula oxygen) - EENT Eyes: Present: PERRL, EOM intact - Neck Neck: Present: supple, normal ROM - Respiratory Respiratory effort: normal Respiratory: bilateral: diminished, rhonchi, negative: rales, wheezing - Cardiovascular Rhythm: regular Heart Sounds: Present: S1 & S2 - Extremities Extremities: no ischemia, No edema - Abdominal General gastrointestinal: soft, non-tender, non-distended, normal bowel sounds - Integumentary Integumentary: Present: clear, warm - Psychiatric Psychiatric: appropriate mood/affect, cooperative - Neurologic Neurologic: CNII-XII intact, moves all extremities HEART Score - HEART Score Troponin: Troponin T 0.032 ng/mL (0.00-0.029) H 07/14/21 10:22 Results - Labs CBC & Chem 7: 07/15/21 03:55 07/19/21 04:54 Labs: Laboratory Last Values WBC 8.8 K/mm3 (4.5-11.0) 07/15/21 03:55 RBC 4.62 M/mm3 (3.65-5.03) 07/15/21 03:55 Hgb 13.2 gm/dl (10.1-14.3) 07/15/21 03:55 Hct 40.4 % (30.3-42.9) D 07/15/21 03:55 MCV 87 fl (79-97) 07/15/21 03:55 MCH 29 pg (28-32) 07/15/21 03:55 MCHC 33 % (30-34) 07/15/21 03:55 RDW 15.0 % (13.2-15.2) 07/15/21 03:55 Plt Count 128 K/mm3 (140-440) L 07/15/21 03:55 Lymph % (Auto) 9.9 % (13.4-35.0) L 07/15/21 03:55 [place] % (Auto) 9.3 % (0.0-7.3) H 07/15/21 03:55 Eos % (Auto) 0.0 % (0.0-4.3) 07/15/21 03:55 Baso % (Auto) 0.1 % (0.0-1.8) 07/15/21 03:55 Lymph # (Auto) 0.9 K/mm3 (1.2-5.4) L 07/15/21 03:55 [place] # (Auto) 0.8 K/mm3 (0.0-0.8) 07/15/21 03:55 Eos # (Auto) 0.0 K/mm3 (0.0-0.4) 07/15/21 03:55 Baso # (Auto) 0.0 K/mm3 (0.0-0.1) 07/15/21 03:55 Seg Neutrophils % 80.7 % (40.0-70.0) H 07/15/21 03:55 Seg Neutrophils # 7.1 K/mm3 (1.8-7.7) 07/15/21 03:55 D-Dimer 642.08 ng/mlDDU (0-234) H 07/14/21 10:22 Sodium 139 mmol/L (137-145) 07/19/21 04:54 Potassium 4.0 mmol/L (3.6-5.0) 07/19/21 04:54 Chloride 103.9 mmol/L (98-107) 07/19/21 04:54 Carbon Dioxide 27 mmol/L (22-30) 07/19/21 04:54 Anion Gap 12 mmol/L 07/19/21 04:54 BUN 20 mg/dL (7-17) H 07/19/21 04:54 Creatinine 0.6 mg/dL (0.6-1.2) 07/19/21 04:54 Estimated GFR > 60 ml/min 07/19/21 04:54 BUN/Creatinine Ratio 33 % 07/19/21 04:54 Glucose 150 mg/dL (65-100) H 07/19/21 04:54 POC Glucose 116 mg/dL (70-105) H 07/19/21 08:03 Calcium 10.4 mg/dL (8.4-10.2) H 07/19/21 04:54 Ferritin 263.2 ng/mL (10.0-200.0) H 07/14/21 10:22 Total Bilirubin < 0.20 mg/dL (0.1-1.2) 07/19/21 04:54 AST 9 units/L (5-40) 07/19/21 04:54 ALT 7 units/L (7-56) 07/19/21 04:54 Alkaline Phosphatase 56 units/L (35-129) 07/19/21 04:54 Lactate Dehydrogenase 314 units/L (91-180) H 07/14/21 10:22 Troponin T 0.032 ng/mL (0.00-0.029) H 07/14/21 10:22 C-Reactive Protein 1.60 mg/dL (0.00-1.30) H 07/14/21 10:22 Total Protein 6.2 g/dL (6.3-8.2) L 07/19/21 04:54 Albumin 3.4 g/dL (3.9-5) L 07/19/21 04:54 Albumin/Globulin Ratio 1.2 % 07/19/21 04:54 Triglycerides 162 mg/dL (2-149) H 07/14/21 10:22 Cholesterol 240 mg/dL (50-199) H 07/14/21 10:22 LDL Cholesterol Direct 146 mg/dL (50-130) H 07/14/21 10:22 HDL Cholesterol 71 mg/dL (40-59) H 07/14/21 10:22 Cholesterol/HDL Ratio 3.38 % 07/14/21 10:22 Procalcitonin 1.35 ng/mL (<0.15) 07/14/21 10:22 Coronavirus (PCR) Positive (Negative) A 07/14/21 10:58 Schwarz/IV: Voiding Method Bedpan Active Medications - Current Medications Current Medications: Generic Name Dose Route Start Last Admin Trade Name Freq PRN Reason Stop Dose Admin Acetaminophen 650 mg 07/15/21 07:41 Acetaminophen 325 Mg Tab PO Q4H PRN Pain MILD(1-3)/Fever >100.5/CANNON Acetylcysteine 200 mg 07/18/21 20:00 07/19/21 09:00 Acetylcysteine 20% 200 Mg/1 Ml *For Inhalation Use* INHALATION Not Given Q12HRT CECI Albuterol 2.5 mg 07/14/21 12:13 Albuterol 2.5 Mg/3 Ml Nebu IH Q4HRT PRN Shortness Of Breath Ascorbic Acid 500 mg 07/14/21 22:00 07/18/21 22:52 Ascorbic Acid 500 Mg Tab PO 500 mg BID CECI Administration Cholecalciferol 1,000 unit 07/15/21 10:00 07/18/21 09:14 Cholecalciferol (Vit D3) 400 Unit Tab PO 1,000 unit QDAY CECI Administration Guaifenesin 10 ml 07/17/21 15:30 07/17/21 15:31 Guaifenesin Dm 200/20 Mg Oral Liqd 10 Ml PO 10 ml Q4H PRN Administration Cough Heparin Sodium (Porcine) 5,000 unit 07/14/21 22:00 07/18/21 22:28 Heparin 5,000 Unit/1 Ml Vial SUB-Q 5,000 unit Q12HR CECI Administration Hydromorphone HCl 0.5 mg 07/14/21 12:13 07/14/21 14:45 Hydromorphone 1 Mg/1 Ml Inj IV 0.5 mg Q23H PRN Administration Pain , Severe (7-10) REMDESIVIR 100 mg/ Sodium 250 mls @ 500 mls/hr 07/17/21 21:00 07/18/21 22:27 Chloride IV 07/20/21 21:29 500 mls/hr Q24HR@2100 CECI Administration Methylprednisolone Sodium Succinate 40 mg 07/14/21 14:00 07/19/21 05:21 Methylprednisolone Sod Succinate 40 Mg/1 Ml Inj IV 40 mg Q8HR CECI Administration Nicotine 14 mg 07/17/21 15:00 07/18/21 09:14 Nicotine 14 Mg/24 Hr Patch TD 14 mg QDAY CECI Administration Ondansetron HCl 4 mg 07/14/21 12:13 Ondansetron 4 Mg/2 Ml Inj IV Q8H PRN Nausea And Vomiting Oxycodone/Acetaminophen 1 tab 07/14/21 12:13 Oxycodone /Acetaminophen 5-325mg Tab PO Q16H PRN Pain, Moderate (4-6) Sodium Chloride 10 ml 07/14/21 22:00 07/18/21 22:28 Sodium Chloride 0.9% 10 Ml Flush Syringe IV 10 ml BID CECI Administration Sodium Chloride 10 ml 07/14/21 12:13 Sodium Chloride 0.9% 10 Ml Flush Syringe IV PRN PRN LINE FLUSH Sodium Chloride 50 ml 07/16/21 21:00 07/18/21 22:28 Sodium Chloride 0.9% 50 Ml Ivpb IV 07/20/21 21:01 50 ml Q24HR@2100 CECI Administration Zinc Sulfate 220 mg 07/14/21 22:00 07/18/21 22:28 Zinc Sulfate 220 Mg Cap PO 220 mg BID CECI Administration Nutrition/Malnutrition Assess - Dietary Evaluation Nutrition/Malnutrition Findings: Nutrition Notes Start: 07/15/21 17:53 Freq: Status: Active Protocol: Document 07/15/21 17:53 PATRICIA (Rec: 07/15/21 18:10 PATRICIA [id number]) Nutrition Notes Need for Assessment generated from: Low BMI Initial or Follow up Assessment Current Diagnosis Respiratory Failure, Malnutrition Other Pertinent Diagnosis COVID-19, Pneumonia, Acute moderate protein/calorie malnutritioon. Current Diet Regular Diet (since D 07/14). Labs/Tests 07/15: Cl 97.2, BUN 25, Glu 143, Ca 10.8. Pertinent Medications 07/15: Vit C, Vit D3, ZnSO4, others nutritionally unremarkable. Height 5 ft 5 in Weight 49.895 kg [place] Body Weight (kg) 56.81 BMI 18.3 Intake Prior to Admission Good Weight change and time frame Pt states maame having loss body weight [employer]LY[employer]. Weight Status Underweight Subjective/Other Information RD consult for Low BMI assessment. Pt's Low BMI seems to correspond to a natural body composition, and not related to a sudden loss of body weight nor chronic malnutrition, since none were mentioned in the Physical Assessment History or the Progress notes. No report available on Pt's PO intake of meals at the time. F/U on dietary intake assessment. Percent of energy/protein needs met: Prescribed Regular Diet provides for energy/protein needs (2,289 Kcal/89 g) during LOS. Burn Absent Trauma Absent GI Symptoms None Food Allergy No Skin Integrity/Comment Clear, warm, dry. Minimum of two criteria No Is patient on ventilator? No Is Patient Ambulatory and/or Out of Bed Yes [facility] [ 1332.279 NUTR.[id number]] Kcal/Kg value to use for calculation 31 Approximate Energy Requirements Using 1547 kcal/Kg Calculation Used for Recommendations Kcal/kg Additional Notes Protein: 1-1.2 g/Kg; 50-60 g/ day. Fluids: 1 ml/Kcal, or as per MD. Nutrition Intervention Follow-Up By: 07/22/21 Additional Comments Continue monitoring food tolerance, %PO intake of meals , and BM.
[2021-07-19] MEDS: NICOTINE 14 MG/24 HR PATCH TD SCH (10:11)
[2021-07-19] MEDS: ZINC SULFATE 220 MG CAP PO SCH ×2 (10:12→21:39)
[2021-07-19] MEDS: CHOLECALCIFEROL (VIT D3) 400 UNIT TAB PO SCH (10:12)
[2021-07-19] MEDS: HEPARIN 5,000 UNIT/1 ML VIAL SUB-Q SCH ×2 (10:13→21:39)
[2021-07-19] MEDS: ASCORBIC ACID 500 MG TAB PO SCH ×2 (10:16→21:39)
--- NOTE | 2021-07-19 12:53 | Progress Note ---
Assessment and Plan 71 YO Female with COPD presents ED for evaluation. Patient is confused with dementia . Patient history taken from EMS staff, ED staff. The patient notified EMS due to difficulty breathing. EMS notified and upon arrival the patient was found to be in distress with a pulse oximetry of 86% on room air. The patient was placed on supplemental oxygen and transported to [facility] for further care and evaluation of the aforementioned symptoms. The patient was seen and evaluated in the emergency department. The patient was to have a pulse oximetry of 86% on room air which is consistent with acute hypoxemic respiratory failure. The patient was placed on supplemental oxygen without significant improvement in symptoms. The patient was placed on noninvasive positive pressure ventilation with mild improvement in symptoms. Patient is using accessory muscles to breathe, is unable to speak in complete sentences. Chest x-ray showed evidence of pneumonia. Patient admitted to [facility] and initiated on pneumonia protocol as well as coronavirus protocol. Pulmonary team consulted in ED. Infectious disease team consulted in ED. Patient has history of COPD and Hypertension. Patient treated for acute exacerbation of COPD with I/V solumedrol, Bronchodilators, Zithromax and ceftriaxone and S/C Heparin. Patient admits now she has history of smoking 1 pack of cigaretts for many years. Still smoking. Counseled to stop smoking. Says drinks alcohol once in a while. Denies drug abuse. 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 No known drug allergies Patient also positive for Alatorre virus. Patient presently on I/V solumedrol, REMDESIVIR, S/C heparin. Patient transfered to medical floor. Patient alert and awake. On 3 litres O2. O2 saturation 96%. Patient denies chest pain or shortness of breath at this time. Complaining slight cough but breathing better than before.. Patient afebrile. No leukocytosis. Blood pressure 143/89, pulse 85, respirations 20. Chest xray done 07/14/21 reported no acute abnormality. CTA of chest done on 07/16/21 reported No evidence for pulmonary embolism. Prominent areas of bronchial wall thickening in the lung bases with scattered areas of mucous plugging. Findings most likely reflect lower lower airways disease/bronchiolitis. No evidence of bronchopneumonia. Venous doppler studies of lower extremities done 07/16/21 reported No sonographic evidence for DVT in either lower extremity. Patient presently on I/V solumedrol, REMDESIVIR, S/C heparin, Albuterol inhaler and Acetylcysteine. I spent critical care time of 35 minutes, obtaining the history, review the chart, examine the patient, review labs and xray results, talking to the nursing staff and work up plan of treatment in the patient with alatorre virus positive and with hypoxic respiratory failure. - Patient Problems (1) Acute hypoxemic respiratory failure Current Visit: Yes Status: Acute Plan to address problem: O2 3 litres via nasal canula. Continue I/V solumedrol Albuterol inhaler, Acetylcysteine. S/C Heparin Recommend GI Prophylaxis. Recommend ABGs on room air (2) COPD with exacerbation Current Visit: Yes Status: Acute Plan to address problem: O2 4 litres via nasal canula. Continue I/V solumedrol Albuterol inhaler, Acetylcysteine. S/C Heparin Recommend GI Prophylaxis. (3) Malnutrition Current Visit: Yes Status: Acute Qualifiers: Malnutrition type: protein-calorie malnutrition Protein-calorie malnutrition severity: moderate Qualified Code(s): E44.0 - Moderate protein- calorie malnutrition Plan to address problem: Dietary consultation. (4) Coronavirus infection Current Visit: Yes Status: Acute Plan to address problem: O2 3 litres via nasal canula. Continue I/V solumedrol Patient is on REMDESIVIR S/C Lovenox. Management as per infectious diseases. Subjective Date of service: 07/19/21 Principal diagnosis: acute hypoxemic respiratory failure Interval history: 71 YO Female with COPD presents ED for evaluation. Patient is confused with dementia . Patient history taken from EMS staff, ED staff. The patient notified EMS due to difficulty breathing. EMS notified and upon arrival the patient was found to be in distress with a pulse oximetry of 86% on room air. The patient was placed on supplemental oxygen and transported to [facility] for further care and evaluation of the aforementioned symptoms. The patient was seen and evaluated in the emergency department. The patient was to have a pulse oximetry of 86% on room air which is consistent with acute hypoxemic respiratory failure. The patient was placed on supplemental oxygen without significant improvement in symptoms. The patient was placed on noninvasive positive pressure ventilation with mild improvement in symptoms. Patient is using accessory muscles to breathe, is unable to speak in complete sentences. Chest x-ray showed evidence of pneumonia. Patient admitted to [facility] and initiated on pneumonia protocol as well as coronavirus protocol. Pulmonary team consulted in ED. Infectious disease team consulted in ED. Patient has history of COPD and Hypertension. Patient treated for acute exacerbation of COPD with I/V solumedrol, Broncho dilators, Zithromax and ceftriaxone and S/C Heparin. Patient admits now she has history of smoking 1 pack of cigaretts for many years. Still smoking. Counseled to stop smoking. Says drinks alcohol once in a while. Denies drug abuse. 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 No known drug allergies Patient also positive for Alatorre virus. Patient presently on I/V solumedrol, REMDESIVIR, S/C heparin. Patient transfered to medical floor. Patient alert and awake. On 3 litres O2. O2 saturation 96%. Patient denies chest pain or shortness of breath at this time. Complaining slight cough but breathing better than before.. Patient afebrile. No leukocytosis. Blood pressure 143/89, pulse 85, respirations 20. Chest xray done 07/14/21 reported no acute abnormality. CTA of chest done on 07/16/21 reported No evidence for pulmonary embolism. Prominent areas of bronchial wall thickening in the lung bases with scattered areas of mucous plugging. Findings most likely reflect lower lower airways disease/bronchiolitis. No evidence of bronchopneumonia. Venous doppler studies of lower extremities done 07/16/21 reported No sonographic evidence for DVT in either lower extremity. Patient presently on I/V solumedrol, REMDESIVIR, S/C heparin, Albuterol inhaler and Acetylcysteine. Objective Vital Signs - 12hr 07/19/21 07/19/21 07/19/21 01:31 05:38 09:58 Temperature 98.2 F Pulse Rate 62 Respiratory 18 18 Rate Blood Pressure 137/79 O2 Sat by Pulse 95 100 99 Oximetry 07/19/21 11:56 Temperature Pulse Rate Respiratory Rate Blood Pressure O2 Sat by Pulse 95 Oximetry Constitutional: no acute distress, alert, other (Weak and irritable) Eyes: non-icteric ENT: oropharynx moist Neck: supple, no lymphadenopathy Effort: mildly labored Ascultation: Bilateral: diminished breath sounds, other (Prolonged expiratory phase.) Cardiovascular: regular rate and rhythm Gastrointestinal: normoactive bowel sounds, soft, non-tender Integumentary: normal Extremities: no cyanosis, no edema Neurologic: non-focal exam, pupils equal and round, CN II-XII normal Psychiatric: anxious CBC and BMP: 07/15/21 03:55 07/19/21 04:54 ABG, PT/INR, D-dimer: PT/INR, D-dimer D-Dimer 642.08 ng/mlDDU (0-234) H 07/14/21 10:22 Abnormal lab findings: Abnormal Labs 07/14/21 07/14/21 07/14/21 10:22 10:22 10:22 WBC 11.4 H RBC 5.44 H Hgb 15.4 H Hct 47.0 H Plt Count Lymph % (Auto) 7.6 L [place] % (Auto) Lymph # (Auto) 0.9 L Seg Neutrophils % 87.2 H Seg Neutrophils # 9.9 H D-Dimer 642.08 H Chloride 97.2 L BUN 25 H Glucose 143 H POC Glucose Calcium 10.8 H Ferritin Lactate Dehydrogenase Troponin T 0.032 H C-Reactive Protein Total Protein Albumin Triglycerides 162 H Cholesterol 240 H LDL Cholesterol Direct 146 H HDL Cholesterol 71 H Coronavirus (PCR) 07/14/21 07/14/21 07/14/21 10:22 10:22 10:58 WBC RBC Hgb Hct Plt Count Lymph % (Auto) [place] % (Auto) Lymph # (Auto) Seg Neutrophils % Seg Neutrophils # D-Dimer Chloride BUN Glucose 144 H POC Glucose Calcium Ferritin 263.2 H Lactate Dehydrogenase 314 H Troponin T C-Reactive Protein 1.60 H Total Protein Albumin Triglycerides Cholesterol LDL Cholesterol Direct HDL Cholesterol Coronavirus (PCR) Positive A 07/15/21 07/16/21 07/16/21 03:55 07:28 08:17 WBC RBC Hgb Hct Plt Count 128 L Lymph % (Auto) 9.9 L [place] % (Auto) 9.3 H Lymph # (Auto) 0.9 L Seg Neutrophils % 80.7 H Seg Neutrophils # D-Dimer Chloride BUN 24 H Glucose 114 H POC Glucose 107 H Calcium 10.6 H Ferritin Lactate Dehydrogenase Troponin T C-Reactive Protein Total Protein Albumin Triglycerides Cholesterol LDL Cholesterol Direct HDL Cholesterol Coronavirus (PCR) 07/16/21 07/16/21 07/16/21 10:51 14:51 21:42 WBC RBC Hgb Hct Plt Count Lymph % (Auto) [place] % (Auto) Lymph # (Auto) Seg Neutrophils % Seg Neutrophils # D-Dimer Chloride BUN 23 H Glucose 121 H POC Glucose 135 H 127 H Calcium 10.9 H Ferritin Lactate Dehydrogenase Troponin T C-Reactive Protein Total Protein Albumin 3.8 L Triglycerides Cholesterol LDL Cholesterol Direct HDL Cholesterol Coronavirus (PCR) 07/17/21 07/17/21 07/17/21 06:54 07:42 10:49 WBC RBC Hgb Hct Plt Count Lymph % (Auto) [place] % (Auto) Lymph # (Auto) Seg Neutrophils % Seg Neutrophils # D-Dimer Chloride BUN 19 H Glucose 114 H POC Glucose 122 H 136 H Calcium 11.0 H Ferritin Lactate Dehydrogenase Troponin T C-Reactive Protein Total Protein Albumin Triglycerides Cholesterol LDL Cholesterol Direct HDL Cholesterol Coronavirus (PCR) 07/17/21 07/17/21 07/18/21 15:52 22:45 07:46 WBC RBC Hgb Hct Plt Count Lymph % (Auto) [place] % (Auto) Lymph # (Auto) Seg Neutrophils % Seg Neutrophils # D-Dimer Chloride BUN Glucose POC Glucose 122 H 121 H 147 H Calcium Ferritin Lactate Dehydrogenase Troponin T C-Reactive Protein Total Protein Albumin Triglycerides Cholesterol LDL Cholesterol Direct HDL Cholesterol Coronavirus (PCR) 07/18/21 07/18/21 07/18/21 10:14 11:04 15:35 WBC RBC Hgb Hct Plt Count Lymph % (Auto) [place] % (Auto) Lymph # (Auto) Seg Neutrophils % Seg Neutrophils # D-Dimer Chloride BUN 20 H Glucose 175 H POC Glucose 166 H 163 H Calcium 11.3 H Ferritin Lactate Dehydrogenase Troponin T C-Reactive Protein Total Protein Albumin 3.7 L Triglycerides Cholesterol LDL Cholesterol Direct HDL Cholesterol Coronavirus (PCR) 07/19/21 07/19/21 07/19/21 04:54 08:03 11:59 WBC RBC Hgb Hct Plt Count Lymph % (Auto) [place] % (Auto) Lymph # (Auto) Seg Neutrophils % Seg Neutrophils # D-Dimer Chloride BUN 20 H Glucose 150 H POC Glucose 116 H 119 H Calcium 10.4 H Ferritin Lactate Dehydrogenase Troponin T C-Reactive Protein Total Protein 6.2 L Albumin 3.4 L Triglycerides Cholesterol LDL Cholesterol Direct HDL Cholesterol Coronavirus (PCR)
--- NOTE | 2021-07-19 15:26 | Progress Note ---
Assessment and Plan Cultures: SARS CoV2 PCR: positive A/P: 71-year-old female with COPD, dementia with: #COVID-19, also some bronchiolitis and mucous plugging noted on CT, procalcitonin elevated at 1.35 suggestive of bacterial component. #Acute hypoxic respiratory failure: On nasal cannula. #COPD #Thrombocytopenia Recs: -on solumedrol, continue steroids x 10 days -IV remdesivir x 5 days -completed empiric ceftriaxone, azithromycin for 5 days -prophylactic anticoagulation based on d-dimer per hospital protocol Anuradha Borges MD, FACP, [facility] ([facility] O: [phone] F: [phone] Subjective Date of service: 07/19/21 Interval history: No fever. Remains on oxygen by nasal cannula. Objective - Exam Narrative Exam: Physical Exam (reviewed in chart to minimize risk of transmission) Constitutional: deferred Head, Ears, Nose: deferred Eyes: deferred Neck: deferred Oral: deferred Cardiovascular: deferred Respiratory: deferred GI: deferred Musculoskeletal: deferred Skin: deferred Hem/Lymphatic: deferred Psych: deferred Neurological: deferred - Constitutional Vitals: Vital Signs Temp Pulse Resp BP Pulse Ox 98.2 F 62 18 137/79 95 07/19/21 05:38 07/19/21 05:38 07/19/21 05:38 07/19/21 05:38 07/19/21 11:56 Temperature -Last 24 Hours Temperature 98.2 F Temperature 97.7 F Temperature 97.9 F - Labs CBC & Chem 7: 07/15/21 03:55 07/19/21 04:54 Labs: Abnormal lab results 07/18/21 07/19/21 07/19/21 Range/Units 15:35 04:54 08:03 BUN 20 H (7-17) mg/dL Glucose 150 H (65-100) mg/dL POC Glucose 163 H 116 H (70-105) mg/dL Calcium 10.4 H (8.4-10.2) mg/dL Total Protein 6.2 L (6.3-8.2) g/dL Albumin 3.4 L (3.9-5) g/dL 07/19/21 Range/Units 11:59 BUN (7-17) mg/dL Glucose (65-100) mg/dL POC Glucose 119 H (70-105) mg/dL Calcium (8.4-10.2) mg/dL Total Protein (6.3-8.2) g/dL Albumin (3.9-5) g/dL
[2021-07-19] MEDS: guaiFENesin DM 200/20 MG ORAL LIQD 10 ML PO PRN (20:41)
[2021-07-19] MEDS: REMDESIVIR 100 MG in SODIUM CHLORIDE 0.9% 250ML 250 ML IV SCH (21:39)
[2021-07-19] MEDS: SODIUM CHLORIDE 0.9% 50 ML IVPB IV SCH (23:53)
[2021-07-20] MEDS: methylPREDNISolone Sod Succinate 40 MG/1 ML INJ IV SCH ×2 (07:19→14:17)
[2021-07-20] MEDS ORDERED: CHOLECALCIFEROL (VIT D3) 1000 UNIT (25 mcg) TAB PO SCH (10:00)
[2021-07-20] MEDS: ACETYLCYSTEINE 20% 200 MG/1 ML *FOR INHALATION USE INHALATION SCH ×2 (10:17→19:50)
[2021-07-20] MEDS: NICOTINE 14 MG/24 HR PATCH TD SCH (11:10)
[2021-07-20] MEDS: HEPARIN 5,000 UNIT/1 ML VIAL SUB-Q SCH (11:11)
[2021-07-20] MEDS: ASCORBIC ACID 500 MG TAB PO SCH (11:11)
[2021-07-20] MEDS: ZINC SULFATE 220 MG CAP PO SCH (11:11)
--- NOTE | 2021-07-20 12:10 | Discharge Summary ---
Providers - Providers Date of Admission: 07/14/21 12:13 Date of discharge: 07/20/21 Attending physician: ARY PRIETO 07/16/21 09:22 Consult to Physician [CONS] Routine Comment: Consulting Provider: CHARISSE VELEZ Physician Instructions: Reason For Exam: COVID-19/hypoxia 07/18/21 13:02 Consult to Physician [CONS] Routine Comment: I discussed with Dr. Arango Consulting Provider: ADRIANNE FERNANDO Physician Instructions: Reason For Exam: Mucous plugging on CT/bronchiolitis/COVID Primary care physician: JETHRO BOWSER MD Hospitalization Condition: Stable Hospital course: 71-year-old female patient with significant history of COPD, dementia was admitted with worsening shortness of breath and hypoxia, tested positive for COVID-19. -Chest xray done 07/14/21 reported no acute abnormality. -CTA of chest done on 07/16/21 reported No evidence for pulmonary embolism. Prominent areas of bronchial wall thickening in the lung bases with scattered areas of mucous plugging. Findings most likely reflect lower lower airways disease/bronchiolitis. No evidence of bronchopneumonia. -Venous doppler studies of lower extremities done 07/16/21 reported No sonographic evidence for DVT in either lower extremity. -Placed on dexamethasone for total 10 days and remdesivir total 5 days -Treated with Rocephin and Zithromax for 5 days as procalcitonin level was elevated - Placed on Droplet/contact isolation, continuous SPO2 monitoring, supplemental oxygen as needed, pulmonary hygiene, prone to sleep, Vitamin C, vitamin D, zinc -Patient was given anticoagulation per protocol, Lasix IV as needed to prevent pulmonary edema -Infectious disease and pulmonary were consulted. -Patient's symptoms improved with current Mx and was assessed for home O2 requirement. - Patient was then discharged home in stable condition with outpt followup. Disposition: HOME HEALTH CARE SERVICE Final Discharge Diagnosis (Prints w/discharge instructions): --Elevated D- dimers; CTA chest to rule out PE. -- Acute hypoxic respiratory failure due to COVID-19 pneumonia. -- COVID-19 pneumonia. -- Moderate malnutrition with BMI 18. -- Ongoing tobacco abuse Time spent for discharge: 34 minutes Core Measure Documentation - Palliative Care Palliative Care/ Comfort Measures: Not Applicable - Core Measures Any of the following diagnoses?: none Exam - Physical Exam Narrative exam: Limited physical exam due to COVID-19 pandemic to minimize transmission of the disease and to preserve PPE. Vital reviewed and stable. GENERAL: well-developed lean and thin elderly -[place] female sitting on bed appeared to be in no discomfort. HEENT: Normocephalic. Atraumatic. NECK: Supple. CHEST/LUNGS: breathing nonlabored. HEART/CARDIOVASCULAR: Heart rate stable on telemetry ABDOMEN: Visibly not distended SKIN: There is no rash NEURO: No focal motor deficit. Follows command. MUSCULOSKELETAL: No joint effusion EXTRIMITY: No swelling, no cyanosis or clubbing. PSYCH: Cooperative. - Constitutional Vitals: Temp Pulse Resp BP Pulse Ox 98.5 F 66 20 149/81 93 07/20/21 04:43 07/20/21 04:43 07/20/21 04:43 07/20/21 04:43 07/20/21 04:43 Plan Activity: advance as tolerated Weight Bearing Status: Weight Bear as Tolerated Diet: low fat, low salt Additional Instructions: Upon discharge patient should self-quarantine at home per CDC guideline. Patients should return to hospital regardless if they have worsening fevers or respiratory status. Follow up with: JETHRO BOWSER MD [Primary Care Provider] - 3-5 Days Prescriptions: Dexamethasone 6 mg PO QID #5 Nicotine [Habitrol] 14 mg TD QDAY #7 patch Ascorbic Acid [Vitamin C] 500 mg PO BID #10 tablet Cholecalciferol Vit D3 [Vitamin D3 1,000 UNIT TAB] 1,000 unit PO DAILY #7 tablet Zinc Sulfate 220 mg PO BID #10 capsule
--- NOTE | 2021-07-20 14:03 | Progress Note ---
Assessment and Plan Cultures: SARS CoV2 PCR: positive A/P: 71-year-old female with COPD, dementia with: #COVID-19, also some bronchiolitis and mucous plugging noted on CT, procalcitonin elevated at 1.35 suggestive of bacterial component. #Acute hypoxic respiratory failure: stable on nasal cannula. #COPD #Thrombocytopenia Recs: -on solumedrol, continue steroids x 10 days -completes remdesivir course today -completed abx -prophylactic anticoagulation based on d-dimer per hospital protocol -home oxygen angel Borges MD, FACP, [facility] O: [phone] F: [phone] Subjective Date of service: 07/20/21 Principal diagnosis: acute hypoxemic respiratory failure Interval history: No fever. Remains on oxygen by nasal cannula. Objective - Exam Narrative Exam: Physical Exam (reviewed in chart to minimize risk of transmission) Constitutional: deferred Head, Ears, Nose: deferred Eyes: deferred Neck: deferred Oral: deferred Cardiovascular: deferred Respiratory: deferred GI: deferred Musculoskeletal: deferred Skin: deferred Hem/Lymphatic: deferred Psych: deferred Neurological: deferred - Constitutional Vitals: Vital Signs Temp Pulse Resp BP Pulse Ox 98.5 F 66 20 149/81 93 07/20/21 04:43 07/20/21 04:43 07/20/21 04:43 07/20/21 04:43 07/20/21 04:43 Temperature -Last 24 Hours Temperature 98.5 F Temperature 97.6 F Temperature 97.9 F - Labs CBC & Chem 7: 07/15/21 03:55 07/19/21 04:54 Labs: Abnormal lab results 07/19/21 07/20/21 07/20/21 Range/Units 16:30 08:03 12:48 POC Glucose 146 H 118 H 116 H (70-105) mg/dL
[2021-07-20] MEDS ORDERED: SODIUM CHLORIDE 0.9% 50 ML IVPB IV ONE (15:00)
[2021-07-20] MEDS ORDERED: REMDESIVIR 100 MG in SODIUM CHLORIDE 0.9% 250ML 250 ML IV ONE (15:00)
--- NOTE | 2021-07-20 16:34 | Progress Note ---
Assessment and Plan 71 YO Female with COPD presents ED for evaluation. Patient is confused with dementia . Patient history taken from EMS staff, ED staff. The patient notified EMS due to difficulty breathing. EMS notified and upon arrival the patient was found to be in distress with a pulse oximetry of 86% on room air. The patient was placed on supplemental oxygen and transported to [facility] for further care and evaluation of the aforementioned symptoms. The patient was seen and evaluated in the emergency department. The patient was to have a pulse oximetry of 86% on room air which is consistent with acute hypoxemic respiratory failure. The patient was placed on supplemental oxygen without significant improvement in symptoms. The patient was placed on noninvasive positive pressure ventilation with mild improvement in symptoms. Patient is using accessory muscles to breathe, is unable to speak in complete sentences. Chest x-ray showed evidence of pneumonia. Patient admitted to [facility] and initiated on pneumonia protocol as well as coronavirus protocol. Pulmonary team consulted in ED. Infectious disease team consulted in ED. Patient has history of COPD and Hypertension. Patient treated for acute exacerbation of COPD with I/V solumedrol, Bronchodilators, Zithromax and ceftriaxone and S/C Heparin. Patient admits now she has history of smoking 1 pack of cigaretts for many years. Still smoking. Counseled to stop smoking. Says drinks alcohol once in a while. Denies drug abuse. 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 No known drug allergies Patient also positive for Alatorre virus. Patient presently on I/V solumedrol, REMDESIVIR, S/C heparin. Patient transfered to medical floor. Patient alert and awake. On 3 litres O2. O2 saturation 96%. Patient denies chest pain or shortness of breath at this time. Complaining slight cough but breathing better than before.. Patient afebrile. No leukocytosis. Blood pressure 143/89, pulse 85, respirations 20. Chest xray done 07/14/21 reported no acute abnormality. CTA of chest done on 07/16/21 reported No evidence for pulmonary embolism. Prominent areas of bronchial wall thickening in the lung bases with scattered areas of mucous plugging. Findings most likely reflect lower lower airways disease/bronchiolitis. No evidence of bronchopneumonia. Venous doppler studies of lower extremities done 07/16/21 reported No sonographic evidence for DVT in either lower extremity. Patient presently on I/V solumedrol, REMDESIVIR, S/C heparin, Albuterol inhaler and Acetylcysteine. I spent critical care time of 35 minutes, obtaining the history, review the chart, examine the patient, review labs and xray results, talking to the nursing staff and work up plan of treatment in the patient with alatorre virus positive and with hypoxic respiratory failure. - Patient Problems (1) Acute hypoxemic respiratory failure Current Visit: Yes Status: Acute Plan to address problem: O2 3 litres via nasal canula. Continue I/V solumedrol Albuterol inhaler, Acetylcysteine. S/C Heparin Recommend GI Prophylaxis. Recommend ABGs on room air (2) COPD with exacerbation Current Visit: Yes Status: Acute Plan to address problem: O2 4 litres via nasal canula. Continue I/V solumedrol Albuterol inhaler, Acetylcysteine. S/C Heparin Recommend GI Prophylaxis. (3) Malnutrition Current Visit: Yes Status: Acute Qualifiers: Malnutrition type: protein-calorie malnutrition Protein-calorie malnutrition severity: moderate Qualified Code(s): E44.0 - Moderate protein- calorie malnutrition Plan to address problem: Dietary consultation. (4) Coronavirus infection Current Visit: Yes Status: Acute Plan to address problem: O2 3 litres via nasal canula. Continue I/V solumedrol Patient is on REMDESIVIR S/C Lovenox. Management as per infectious diseases. Subjective Date of service: 07/20/21 Principal diagnosis: acute hypoxemic respiratory failure Interval history: 71 YO Female with COPD presents ED for evaluation. Patient is confused with dementia . Patient history taken from EMS staff, ED staff. The patient notified EMS due to difficulty breathing. EMS notified and upon arrival the patient was found to be in distress with a pulse oximetry of 86% on room air. The patient was placed on supplemental oxygen and transported to [facility] for further care and evaluation of the aforementioned symptoms. The patient was seen and evaluated in the emergency department. The patient was to have a pulse oximetry of 86% on room air which is consistent with acute hypoxemic respiratory failure. The patient was placed on supplemental oxygen without significant improvement in symptoms. The patient was placed on noninvasive positive pressure ventilation with mild improvement in symptoms. Patient is using accessory muscles to breathe, is unable to speak in complete sentences. Chest x-ray showed evidence of pneumonia. Patient admitted to [facility] and initiated on pneumonia protocol as well as coronavirus protocol. Pulmonary team consulted in ED. Infectious disease team consulted in ED. Patient has history of COPD and Hypertension. Patient treated for acute exacerbation of COPD with I/V solumedrol, Broncho dilators, Zithromax and ceftriaxone and S/C Heparin. Patient admits now she has history of smoking 1 pack of cigaretts for many years. Still smoking. Counseled to stop smoking. Says drinks alcohol once in a while. Denies drug abuse. 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 No known drug allergies Patient also positive for Alatorre virus. Patient presently on I/V solumedrol, REMDESIVIR, S/C heparin. Patient transfered to medical floor. Patient alert and awake. On 3 litres O2. O2 saturation 96%. Patient denies chest pain or shortness of breath at this time. Complaining slight cough but breathing better than before.. Patient afebrile. No leukocytosis. Blood pressure 143/89, pulse 85, respirations 20. Chest xray done 07/14/21 reported no acute abnormality. CTA of chest done on 07/16/21 reported No evidence for pulmonary embolism. Prominent areas of bronchial wall thickening in the lung bases with scattered areas of mucous plugging. Findings most likely reflect lower lower airways disease/bronchiolitis. No evidence of bronchopneumonia. Venous doppler studies of lower extremities done 07/16/21 reported No sonographic evidence for DVT in either lower extremity. Patient presently on I/V solumedrol, REMDESIVIR, S/C heparin, Albuterol inhaler and Acetylcysteine. Objective Vital Signs - 12hr 07/20/21 07/20/21 04:43 13:41 Temperature 98.5 F 97.7 F Pulse Rate 66 106 H Respiratory 20 18 Rate Blood Pressure 149/81 139/107 O2 Sat by Pulse 93 96 Oximetry Constitutional: no acute distress, alert, other (Weak and irritable) Eyes: non-icteric ENT: oropharynx moist Neck: supple, no lymphadenopathy Effort: mildly labored Ascultation: Bilateral: diminished breath sounds, other (Prolonged expiratory phase.) Cardiovascular: regular rate and rhythm Gastrointestinal: normoactive bowel sounds, soft, non-tender Integumentary: normal Extremities: no cyanosis, no edema Neurologic: non-focal exam, pupils equal and round, CN II-XII normal Psychiatric: anxious CBC and BMP: 07/15/21 03:55 07/19/21 04:54 ABG, PT/INR, D-dimer: PT/INR, D-dimer D-Dimer 642.08 ng/mlDDU (0-234) H 07/14/21 10:22 Abnormal lab findings: Abnormal Labs 07/14/21 07/14/21 07/14/21 10:22 10:22 10:22 WBC 11.4 H RBC 5.44 H Hgb 15.4 H Hct 47.0 H Plt Count Lymph % (Auto) 7.6 L Sac % (Auto) Lymph # (Auto) 0.9 L Seg Neutrophils % 87.2 H Seg Neutrophils # 9.9 H D-Dimer 642.08 H Chloride 97.2 L BUN 25 H Glucose 143 H POC Glucose Calcium 10.8 H Ferritin Lactate Dehydrogenase Troponin T 0.032 H C-Reactive Protein Total Protein Albumin Triglycerides 162 H Cholesterol 240 H LDL Cholesterol Direct 146 H HDL Cholesterol 71 H Coronavirus (PCR) 07/14/21 07/14/21 07/14/21 10:22 10:22 10:58 WBC RBC Hgb Hct Plt Count Lymph % (Auto) Sac % (Auto) Lymph # (Auto) Seg Neutrophils % Seg Neutrophils # D-Dimer Chloride BUN Glucose 144 H POC Glucose Calcium Ferritin 263.2 H Lactate Dehydrogenase 314 H Troponin T C-Reactive Protein 1.60 H Total Protein Albumin Triglycerides Cholesterol LDL Cholesterol Direct HDL Cholesterol Coronavirus (PCR) Positive A 07/15/21 07/16/21 07/16/21 03:55 07:28 08:17 WBC RBC Hgb Hct Plt Count 128 L Lymph % (Auto) 9.9 L Sac % (Auto) 9.3 H Lymph # (Auto) 0.9 L Seg Neutrophils % 80.7 H Seg Neutrophils # D-Dimer Chloride BUN 24 H Glucose 114 H POC Glucose 107 H Calcium 10.6 H Ferritin Lactate Dehydrogenase Troponin T C-Reactive Protein Total Protein Albumin Triglycerides Cholesterol LDL Cholesterol Direct HDL Cholesterol Coronavirus (PCR) 07/16/21 07/16/21 07/16/21 10:51 14:51 21:42 WBC RBC Hgb Hct Plt Count Lymph % (Auto) Sac % (Auto) Lymph # (Auto) Seg Neutrophils % Seg Neutrophils # D-Dimer Chloride BUN 23 H Glucose 121 H POC Glucose 135 H 127 H Calcium 10.9 H Ferritin Lactate Dehydrogenase Troponin T C-Reactive Protein Total Protein Albumin 3.8 L Triglycerides Cholesterol LDL Cholesterol Direct HDL Cholesterol Coronavirus (PCR) 07/17/21 07/17/21 07/17/21 06:54 07:42 10:49 WBC RBC Hgb Hct Plt Count Lymph % (Auto) Sac % (Auto) Lymph # (Auto) Seg Neutrophils % Seg Neutrophils # D-Dimer Chloride BUN 19 H Glucose 114 H POC Glucose 122 H 136 H Calcium 11.0 H Ferritin Lactate Dehydrogenase Troponin T C-Reactive Protein Total Protein Albumin Triglycerides Cholesterol LDL Cholesterol Direct HDL Cholesterol Coronavirus (PCR) 07/17/21 07/17/21 07/18/21 15:52 22:45 07:46 WBC RBC Hgb Hct Plt Count Lymph % (Auto) Sac % (Auto) Lymph # (Auto) Seg Neutrophils % Seg Neutrophils # D-Dimer Chloride BUN Glucose POC Glucose 122 H 121 H 147 H Calcium Ferritin Lactate Dehydrogenase Troponin T C-Reactive Protein Total Protein Albumin Triglycerides Cholesterol LDL Cholesterol Direct HDL Cholesterol Coronavirus (PCR) 07/18/21 07/18/21 07/18/21 10:14 11:04 15:35 WBC RBC Hgb Hct Plt Count Lymph % (Auto) Sac % (Auto) Lymph # (Auto) Seg Neutrophils % Seg Neutrophils # D-Dimer Chloride BUN 20 H Glucose 175 H POC Glucose 166 H 163 H Calcium 11.3 H Ferritin Lactate Dehydrogenase Troponin T C-Reactive Protein Total Protein Albumin 3.7 L Triglycerides Cholesterol LDL Cholesterol Direct HDL Cholesterol Coronavirus (PCR) 07/19/21 07/19/21 07/19/21 04:54 08:03 11:59 WBC RBC Hgb Hct Plt Count Lymph % (Auto) Sac % (Auto) Lymph # (Auto) Seg Neutrophils % Seg Neutrophils # D-Dimer Chloride BUN 20 H Glucose 150 H POC Glucose 116 H 119 H Calcium 10.4 H Ferritin Lactate Dehydrogenase Troponin T C-Reactive Protein Total Protein 6.2 L Albumin 3.4 L Triglycerides Cholesterol LDL Cholesterol Direct HDL Cholesterol Coronavirus (PCR) 07/19/21 07/20/21 07/20/21 16:30 08:03 12:48 WBC RBC Hgb Hct Plt Count Lymph % (Auto) Sac % (Auto) Lymph # (Auto) Seg Neutrophils % Seg Neutrophils # D-Dimer Chloride BUN Glucose POC Glucose 146 H 118 H 116 H Calcium Ferritin Lactate Dehydrogenase Troponin T C-Reactive Protein Total Protein Albumin Triglycerides Cholesterol LDL Cholesterol Direct HDL Cholesterol Coronavirus (PCR)
[2021-07-20 18:46] LABS: ABG Base Excess 3.3 mmol/L (-2.0-3.0); ABG HCO3 26.5 mmol/L (20.0-26.0); ABG Methemoglobin 0.5 % (0.0-1.5); ABG Oxygen Saturation 91.4 % (95.0-99.0); ABG PCO2 35.7 mm Hg; ABG PH 7.488 pH Units (7.350-7.450); ABG PO2 54.4 mm Hg (80.0-90.0)
[2021-07-20 19:10] VITALS: BP 183/107
== END 2021-07-20 20:34 | disposition home health service (06) | DRG 177 ==
LOC: ED 09:55 → 3A 12:13
PROVIDERS: ADMIT Internal Medicine; ATTEND Internal Medicine
PROC: XW033E5 Introduction of Remdesivir Anti-infective into Peripheral Vein, Percutaneous Approach, New Technology Group 5 (ICD-10-PCS; principal; 2021-07-16)
PROC: 4A033R1 Measurement of Arterial Saturation, Peripheral, Percutaneous Approach (ICD-10-PCS; 2021-07-20)
DX: U07.1 COVID-19 (principal); J12.82 Pneumonia due to coronavirus disease 2019; J96.01 Acute respiratory failure with hypoxia; J44.0 Chronic obstructive pulmonary disease with (acute) lower respiratory infection; Z68.1 Body mass index [BMI] 19.9 or less, adult; J44.1 Chronic obstructive pulmonary disease with (acute) exacerbation; E44.0 Moderate protein-calorie malnutrition; D69.6 Thrombocytopenia, unspecified
CPT/HCPCS: 36415; 36600; 71045; 71275; 80048; 80053; 80061; 82728; 82803; 82947; 82962; 83615; 84145; 84484; 85025; 85379; 86140; 93005; 93970; 94640; 94760; G0378; Q0162; J0456; J0696; J1170; J1644; J2920; J7030; J7050; Q9967; U0003

== ENCOUNTER 2022-01-29 07:54 | Emergency (ER) | payer MEDICARE ==
[2022-01-29] MEDS ORDERED: ALBUTEROL 2.5 MG/3 ML NEBU IH ONE (08:06)
[2022-01-29] MEDS ORDERED: methylPREDNISolone Sod Succinate 125 MG/2 ML INJ IV ONE (08:06)
--- NOTE | 2022-01-29 08:10 | Emergency Department Report ---
ED Shortness of Breath HPI - General Chief Complaint: Dyspnea/Respdistress Stated Complaint: DIFFICULTY BREATHING Time Seen by Provider: 01/29/22 08:02 Source: patient, EMS Mode of arrival: Stretcher Limitations: No Limitations - History of Present Illness Initial Comments: Patient is a 72-year-old female with history of COPD brought in by EMS from home with complaint of shortness of breath that began at 530 this morning. EMS arrived to find patient satting in the low 90s with increased work of breathing and decreased air movement on auscultation. She was subsequently placed on 4 L nasal cannula with improvement of oxygen saturations to 95 to 97%. She was also given albuterol nebulization in route. EMS attempted to wean oxygen off and patient desatted back into the low 90s. She is not on home oxygen. She denies fever, chills or chest pain. - Related Data Previous Rx's Medication Instructions Recorded Last Taken Type Ascorbic Acid [Vitamin C] 500 mg PO BID #10 tablet 07/20/21 Unknown Rx Cholecalciferol Vit D3 [Vitamin D3 1,000 unit PO DAILY #7 tablet 07/20/21 Unknown Rx 1,000 UNIT TAB] Dexamethasone 6 mg PO QID #5 07/20/21 Unknown Rx Nicotine [Habitrol] 14 mg TD QDAY #7 patch 07/20/21 Unknown Rx Zinc Sulfate 220 mg PO BID #10 capsule 07/20/21 Unknown Rx Allergies Allergy/AdvReac Type Severity Reaction Status Date / Time No Known Allergies Allergy Verified 01/29/22 08:00 ED Review of Systems ROS: Stated complaint: DIFFICULTY BREATHING Other details as noted in HPI Constitutional: denies: chills, fever Respiratory: shortness of breath Cardiovascular: denies: chest pain, palpitations Gastrointestinal: denies: abdominal pain, nausea, diarrhea Musculoskeletal: denies: back pain, joint swelling, arthralgia Skin: denies: rash, lesions Neurological: denies: headache, weakness, paresthesias Psychiatric: denies: anxiety, depression ED Past Medical Hx - Past Medical History Hx Hypertension: Yes Hx COPD: Yes (Per EMS) Additional medical history: GOUT - Surgical History Additional Surgical History: Cannot be obtained for the patient secondary to respiratory distress - Social History Smoking Status: Current Some Day Smoker - Medications Home Medications: Home Medications Medication Instructions Recorded Confirmed Last Taken Type Ascorbic Acid [Vitamin C] 500 mg PO BID #10 tablet 07/20/21 Unknown Rx Cholecalciferol Vit D3 [Vitamin D3 1,000 unit PO DAILY #7 tablet 07/20/21 Unknown Rx 1,000 UNIT TAB] Dexamethasone 6 mg PO QID #5 07/20/21 Unknown Rx Nicotine [Habitrol] 14 mg TD QDAY #7 patch 07/20/21 Unknown Rx Zinc Sulfate 220 mg PO BID #10 capsule 07/20/21 Unknown Rx ED Physical Exam - General Limitations: No Limitations General appearance: alert, in no apparent distress - Head Head exam: Present: atraumatic, normocephalic - Neck Neck exam: Present: normal inspection - Respiratory Respiratory exam: Present: wheezes (Bilateral diffuse expiratory wheezing), decreased breath sounds - Cardiovascular Cardiovascular Exam: Present: regular rate, normal rhythm, normal heart sounds - GI/Abdominal GI/Abdominal exam: Present: soft. Absent: distended, tenderness - Rectal Rectal exam: Present: deferred - Extremities Exam Extremities exam: Present: normal inspection. Absent: pedal edema - Neurological Exam Neurological exam: Present: alert, oriented X3 - Psychiatric Psychiatric exam: Present: normal affect, normal mood - Skin Skin exam: Present: warm, dry, intact, normal color ED Course Vital Signs 01/29/22 01/29/22 01/29/22 07:59 08:11 08:16 Temperature 98.2 F Pulse Rate 110 H 106 H Pulse Rate [ Bilateral Throughout] Respiratory 18 26 H 26 H Rate Respiratory Rate [Bilateral Throughout] Blood Pressure Blood Pressure 144/80 [Left] O2 Sat by Pulse 97 97 99 Oximetry 01/29/22 01/29/22 01/29/22 08:30 08:46 09:00 Temperature Pulse Rate 102 H 112 H 113 H Pulse Rate [ 116 H Bilateral Throughout] Respiratory 27 H 25 H 25 H Rate Respiratory 24 Rate [Bilateral Throughout] Blood Pressure 138/65 138/65 Blood Pressure [Left] O2 Sat by Pulse 97 100 100 Oximetry 01/29/22 01/29/22 01/29/22 09:16 09:30 09:45 Temperature Pulse Rate 115 H 112 H 102 H Pulse Rate [ Bilateral Throughout] Respiratory 25 H 26 H 21 Rate Respiratory Rate [Bilateral Throughout] Blood Pressure 100/55 109/61 90/62 Blood Pressure [Left] O2 Sat by Pulse 97 96 Oximetry 01/29/22 01/29/22 10:00 10:16 Temperature Pulse Rate 111 H 116 H Pulse Rate [ Bilateral Throughout] Respiratory 21 25 H Rate Respiratory Rate [Bilateral Throughout] Blood Pressure 90/62 110/59 Blood Pressure [Left] O2 Sat by Pulse 97 96 Oximetry ED Medical Decision Making - Lab Data Result diagrams: 01/29/22 08:19 01/29/22 08:19 - EKG Data -: EKG Interpreted by Ut EKG shows normal: sinus rhythm, axis, intervals, QRS complexes, ST-T waves Rate: tachycardia - Radiology Data Radiology results: report reviewed No acute findings on chest x-ray. - Medical Decision Making Patient given IV Solu-Medrol and additional 7.5 mg of nebulized albuterol. Chest x-ray is unremarkable. CBC, CMP and ABG are all grossly unremarkable. We were able to wean her off of oxygen. On reassessment patient is sleeping comfortably in bed with saturations of 96%. Upon awakening states her symptoms are much improved. Likely mild COPD exacerbation. She is stable for discharge home. Critical care attestation.: If time is entered above; I have spent that time in minutes in the direct care of this critically ill patient, excluding procedure time. ED Disposition Clinical Impression: COPD with exacerbation Disposition: 01 HOME / SELF CARE / HOMELESS Is pt being admited?: No Condition: Stable Instructions: Chronic Obstructive Pulmonary Disease (ED), Chronic Obstructive Pulmonary Disease Exacerbation, [id number] Additional Instructions: Please follow-up with your regular doctor as needed. You may return if your symptoms worsen. Time of Disposition: 13:04
--- NOTE | 2022-01-29 08:31 | XRay Report ---
CHEST 1 VIEW INDICATION / CLINICAL INFORMATION: Dyspnea. FINDINGS: SUPPORT DEVICES: None. HEART / MEDIASTINUM: No significant abnormality. LUNGS / PLEURA: Emphysema. No significant pulmonary or pleural abnormality. No pneumothorax. ADDITIONAL FINDINGS: No significant additional findings. IMPRESSION: 1. No acute findings. Signer Name: Klever Puga MD Signed: 01/29/2022 8:26 AM Workstation Name: [email or web address]
[2022-01-29 08:40] LABS: Basophils % (Auto) 0.2 % (0.0-1.8); Eosinophils # (Auto) 0.1 K/mm3 (0.0-0.4); Eosinophils % (Auto) 0.9 % (0.0-4.3); Hematocrit 40.5 % (30.3-42.9); Hemoglobin 13.6 gm/dl (10.1-14.3); Lymphocytes # (Auto) 2.2 K/mm3 (1.2-5.4); Lymphocytes % (Auto) 22.6 % (13.4-35.0); Mean Corpuscular HGB Conc 34 % (30-34); Mean Corpuscular Volume 85 fl (79-97); Monocytes # (Auto) 0.6 K/mm3 (0.0-0.8); Monocytes % (Auto) 6.5 % (0.0-7.3); Platelet Count 186 K/mm3 (140-440); Red Blood Count 4.77 M/mm3 (3.65-5.03); Red Cell Distribution Width 14.6 % (13.2-15.2)
[2022-01-29 08:57] LABS: ABG Base Excess -0.7 mmol/L (-2.0-3.0); ABG HCO3 24.4 mmol/L (20.0-26.0); ABG Methemoglobin 0.5 % (0.0-1.5); ABG Oxygen Saturation 95.7 % (95.0-99.0); ABG PH 7.382 pH Units (7.350-7.450); ABG PO2 72.8 mm Hg (80.0-90.0)
[2022-01-29 09:15] LABS: Alanine Aminotransferase 23 units/L (7-56); Albumin 4.8 g/dL (3.9-5); Blood Urea Nitrogen 10 mg/dL (7-17); Calcium 10.6 mg/dL (8.4-10.2); Hemolysis Index 2
[2022-01-29 09:38] LABS: BUN/Creatinine Ratio 14
--- NOTE | 2022-01-29 10:44 | Electrocardiograph Report ---
[facility] Test Date: 2022-01-29 Test Time: 08:12:13 Pat Name: TYLER COLUNGA Department: Room: Gender: F Key Holder: ALAYNA : 1950 Requested By: MILAGROS KAN Order Number: [id number] Reading MD: Grabiel Garner Measurements Intervals Friend Rate: 105 P: 86 MT: 134 QRS: 90 QRSD: 75 T: 68 QT: 359 QTc: 475 Interpretive Statements Sinus tachycardia Biatrial enlargement Compared to ECG 07/15/2021 04:19:52 Atrial abnormality now present Myocardial infarct finding no longer present Electronically Signed On 01-29-2022 10:44:34 EDT by Grabiel Garner
[2022-01-29 14:49] VITALS: BP 139/75
== END 2022-01-29 14:47 | disposition home or self-care (01) ==
LOC: ED 07:54
DX: J44.1 Chronic obstructive pulmonary disease with (acute) exacerbation (principal); I10 Essential (primary) hypertension; F17.200 Nicotine dependence, unspecified, uncomplicated; Z79.899 Other long term (current) drug therapy
CPT/HCPCS: 36415; 71045; 80053; 82803; 85025; 93005; 94640; 96374; 99284; J2930; 94644